=== PATIENT | male | born 1950 | race Asian ===

== ENCOUNTER 2021-11-21 10:24 | Inpatient (IN) | payer OTHER ==
[2021-11-21 12:12] LABS: VENOUS BASE EXCESS 0.7 mmol/L (-2-2); VENOUS O2 SATURATION 91.5 % (70-80); VENOUS PCO2 37.2 mmHg (38-52); VENOUS PH 7.441 (7.310-7.410)
[2021-11-21] MEDS ORDERED: LACTATED RINGERS SOLUTION 1000 ML INFUS.BAG IV ONE (12:12)
[2021-11-21 12:32] LABS: HEMATOCRIT 26.2 % (35.4-49); HEMOGLOBIN 8.6 GM/dL (11.7-16.9); MCH 29.7 pg (25.7-33.7); MCHC 32.9 g/dl (32.0-35.9); MEAN CELL VOLUME 90.2 fl (80-96); MEAN PLT VOLUME 8.2 fl (7.5-11.1); PLATELET COUNT 324 10^3/uL (134-434); RDW 15.7 % (11.9-15.9); WHITE BLOOD COUNT 24.9 K/mm3 (4.0-10.0)
[2021-11-21 12:35] LABS: INR 1.28 (0.83-1.09); PROTHROMBIN TIME (PATIENT) 14.7 SEC (9.7-13.0)
[2021-11-21 12:38] LABS: ACTIVATED PTT 30.4 SECONDS (25.2-36.5)
[2021-11-21 12:42] LABS: CHLORIDE 96 mmol/L (98-107); SODIUM 136 mmol/L (136-145)
[2021-11-21 12:44] LABS: BLOOD UREA NITROGEN 40.5 mg/dL (7-18)
[2021-11-21 12:45] LABS: ALBUMIN 1.9 g/dl (3.4-5.0); ANION GAP 13 MMOL/L (8-16); CO2 26 mmol/L (21-32); GLUCOSE,RANDOM 103 mg/dL (74-106)
[2021-11-21 12:48] LABS: CREATININE 1.3 mg/dL (0.55-1.3); SGOT/AST 90 U/L (15-37); SGPT/ALT 114 U/L (13-61)
[2021-11-21 12:49] LABS: BILIRUBIN,TOTAL 1.3 mg/dL (0.2-1); TOT PROT 6.2 g/dl (6.4-8.2)
[2021-11-21 12:50] LABS: ALK PHOS 302 U/L (45-117)
[2021-11-21] MEDS ORDERED: PIPERACILLIN/TAZOB 3.375 GM 3.375 GM in DEXTROSE 5%-WATER - 50 ML IVPB ONE (13:02)
[2021-11-21] MEDS ORDERED: VANCOMYCIN 1 GM in D5W (PRE-DOCKED) 1,000 MG/250 ML IVPB ONE (13:02)
[2021-11-21] MEDS ORDERED: PIPERACILLIN/TAZOB 3.375 GM 3.375 GM/50 ML BAG IVPB ONE (13:14)
[2021-11-21] MEDS ORDERED: VANCOMYCIN 1 GRAM (PRE-DOCKED) 1,000 MG/250 ML BAG IVPB ONE (13:14)
[2021-11-21 13:34] LABS: EPI CELLS 27 /uL (0-25.1); HYALINE CASTS 19 /uL (0-3.1); URINE APPEARANCE CLOUDY; URINE BACTERIA 2 /uL (0-1359); URINE BILIRUBIN 1+ (NEGATIVE); URINE COLOR DK YELLOW; URINE GLUCOSE (UA) NEGATIVE (NEGATIVE); URINE KETONE TRACE (NEGATIVE); URINE LEUK ESTERASE NEGATIVE (NEGATIVE); URINE NITRITE NEGATIVE (NEGATIVE); URINE PROTEIN 1+ (NEGATIVE); URINE RBC 19 /uL (0-23.9); URINE WBC 17 /uL (0-25.8)
[2021-11-21 13:43] LABS: ANISOCYTOSIS 0; HELMET CELLS 0; HOWELL-JOLLY BODIES 0; MACROCYTOSIS 0; OVALOCYTE 0; ROULEAU 0; SICKELED CELLS 0; TARGET CELLS 0; TEAR DROP CELLS 0; TOXIC GRANULATION 0
[2021-11-21] MEDS ORDERED: DEXAMETHASONE SOD PHOSPHATE 4 MG/1 ML VIAL IVPUSH ONE (21:08)
[2021-11-21] MEDS ORDERED: DEXTROSE 5%-WATER - 50 ML IVPB ONE (22:07)
[2021-11-21] MEDS ORDERED: PIPERACILLIN/TAZOBACTAM 3.375 GM VIAL IVPB ONE (22:07)
[2021-11-21] MEDS: PIPERACILLIN/TAZOB 3.375 GM 3.375 GM in DEXTROSE 5%-WATER - 50 ML IVPB SCH (22:29)
[2021-11-21] MEDS: VANCOMYCIN 1 GM/200 ML PREMIX BAG IVPB SCH (23:07)
[2021-11-22] MEDS ORDERED: PIPERACILLIN/TAZOBACTAM 3.375 GM VIAL IVPB ONE ×3 (01:24→18:10)
[2021-11-22] MEDS ORDERED: DEXTROSE 5%-WATER - 50 ML IVPB ONE ×3 (01:25→18:10)
[2021-11-22] MEDS: PIPERACILLIN/TAZOB 3.375 GM 3.375 GM in DEXTROSE 5%-WATER - 50 ML IVPB SCH ×3 (02:44→18:13)
[2021-11-22 07:27] LABS: HEMATOCRIT 26.7 % (35.4-49); HEMOGLOBIN 8.6 GM/dL (11.7-16.9); MCH 29.4 pg (25.7-33.7); MCHC 32.4 g/dl (32.0-35.9); MEAN CELL VOLUME 90.6 fl (80-96); MEAN PLT VOLUME 7.5 fl (7.5-11.1); PLATELET COUNT 410 10^3/uL (134-434); RBC 2.94 M/mm3 (4.00-5.60); RDW 15.7 % (11.9-15.9); WHITE BLOOD COUNT 28.7 K/mm3 (4.0-10.0)
[2021-11-22 08:41] LABS: ANISOCYTOSIS 0; HELMET CELLS 0; HOWELL-JOLLY BODIES 0; MACROCYTOSIS 0; OVALOCYTE 0; ROULEAU 0; SICKELED CELLS 0; TARGET CELLS 0; TEAR DROP CELLS 0; TOXIC GRANULATION 0
[2021-11-22 08:57] LABS: ALBUMIN 1.9 g/dl (3.4-5.0); BLOOD UREA NITROGEN 29.3 mg/dL (7-18); MAGNESIUM 2.2 mg/dL (1.8-2.4)
[2021-11-22 09:00] LABS: PHOSPHOROUS 3.7 mg/dL (2.5-4.9)
[2021-11-22 09:01] LABS: BILIRUBIN,TOTAL 1.4 mg/dL (0.2-1)
[2021-11-22 09:02] LABS: TOT PROT 6.2 g/dl (6.4-8.2)
[2021-11-22] MEDS ORDERED: REMDESIVIR 200 MG in SODIUM CHLORIDE 250 ML IVPB ONE (09:30)
[2021-11-22] MEDS ORDERED: TICAGRELOR 60 MG TABLET PO SCH (10:00)
[2021-11-22] MEDS: VANCOMYCIN 1 GM/200 ML PREMIX BAG IVPB SCH ×2 (10:49→13:24)
[2021-11-22] MEDS: DEXAMETHASONE SOD PHOSPHATE 10 MG/1 ML VIAL IVPUSH SCH (10:53)
[2021-11-22] MEDS: amLODIPine BESYLATE 5 MG TABLET (FP) PO SCH (10:55)
[2021-11-22] MEDS: ENOXAPARIN NA (PORCINE) 40 MG/0.4 ML DISP.SYRIN SQ SCH (10:55)
[2021-11-22] MEDS: ALLOPURINOL 100 MG TABLET (FP) PO SCH (12:01)
[2021-11-22] MEDS ORDERED: VANCOMYCIN/WATER FOR INJ (PEG) 1,000 MG/200 ML BAG IVPB SCH (13:00)
[2021-11-22] MEDS ORDERED: ALBUTEROL SO4 2.5/IPRATROPIUM 0.5 INH SOL 3 ML VIAL.NEB. NEB PRN (14:36)
[2021-11-22] MEDS: AMINO ACIDS/PROTEIN HYDROLYS 30 ML LIQUID.PKT PO SCH (18:13)
[2021-11-22] MEDS: ATORVASTATIN CA 40 MG TABLET (FP) PO SCH (21:32)
[2021-11-22] MEDS: VANCOMYCIN/WATER FOR INJ (PEG) 1,000 MG/200 ML BAG IVPB SCH (21:32)
[2021-11-23] MEDS ORDERED: DEXTROSE 5%-WATER - 50 ML IVPB ONE ×3 (01:06→18:00)
[2021-11-23] MEDS ORDERED: PIPERACILLIN/TAZOBACTAM 3.375 GM VIAL IVPB ONE ×3 (01:06→18:00)
[2021-11-23] MEDS: PIPERACILLIN/TAZOB 3.375 GM 3.375 GM in DEXTROSE 5%-WATER - 50 ML IVPB SCH ×3 (01:49→18:02)
[2021-11-23 06:46] LABS: HEMATOCRIT 25.4 % (35.4-49); HEMOGLOBIN 8.3 GM/dL (11.7-16.9); MCH 29.7 pg (25.7-33.7); MCHC 32.7 g/dl (32.0-35.9); MEAN CELL VOLUME 90.8 fl (80-96); MEAN PLT VOLUME 7.5 fl (7.5-11.1); PLATELET COUNT 476 10^3/uL (134-434); RDW 15.8 % (11.9-15.9); WHITE BLOOD COUNT 29.8 K/mm3 (4.0-10.0)
[2021-11-23 07:08] LABS: CALCIUM 7.3 mg/dL (8.5-10.1)
[2021-11-23 07:09] LABS: ALBUMIN 1.8 g/dl (3.4-5.0); MAGNESIUM 1.9 mg/dL (1.8-2.4)
[2021-11-23 07:12] LABS: BILIRUBIN,TOTAL 0.7 mg/dL (0.2-1); CREATININE 1.1 mg/dL (0.55-1.3)
[2021-11-23 07:13] LABS: TOT PROT 5.8 g/dl (6.4-8.2)
[2021-11-23] MEDS ORDERED: POTASSIUM CHLORIDE TABS 20 MEQ TABLET.ER (FP) PO ONE (07:35)
[2021-11-23 08:32] LABS: ANISOCYTOSIS 2+; MACROCYTOSIS 0
[2021-11-23] MEDS: AMINO ACIDS/PROTEIN HYDROLYS 30 ML LIQUID.PKT PO SCH ×2 (10:49→18:02)
[2021-11-23] MEDS: amLODIPine BESYLATE 5 MG TABLET (FP) PO SCH (10:49)
[2021-11-23] MEDS: DEXAMETHASONE SOD PHOSPHATE 10 MG/1 ML VIAL IVPUSH SCH (10:49)
[2021-11-23] MEDS: ALLOPURINOL 100 MG TABLET (FP) PO SCH (10:50)
[2021-11-23] MEDS: VANCOMYCIN/WATER FOR INJ (PEG) 1,000 MG/200 ML BAG IVPB SCH ×2 (11:02→22:18)
[2021-11-23] MEDS: ENOXAPARIN NA (PORCINE) 40 MG/0.4 ML DISP.SYRIN SQ SCH (11:02)
[2021-11-23] MEDS: ATORVASTATIN CA 40 MG TABLET (FP) PO SCH (22:19)
[2021-11-24] MEDS ORDERED: DEXTROSE 5%-WATER - 50 ML IVPB ONE ×3 (00:51→19:24)
[2021-11-24] MEDS ORDERED: PIPERACILLIN/TAZOBACTAM 3.375 GM VIAL IVPB ONE ×3 (00:51→19:23)
[2021-11-24] MEDS: PIPERACILLIN/TAZOB 3.375 GM 3.375 GM in DEXTROSE 5%-WATER - 50 ML IVPB SCH ×3 (01:45→20:34)
[2021-11-24 08:04] LABS: HEMATOCRIT 25.9 % (35.4-49); HEMOGLOBIN 8.5 GM/dL (11.7-16.9); MEAN PLT VOLUME 7.4 fl (7.5-11.1); PLATELET COUNT 555 10^3/uL (134-434); RBC 2.85 M/mm3 (4.00-5.60)
[2021-11-24 08:27] LABS: CALCIUM 7.6 mg/dL (8.5-10.1)
[2021-11-24 08:28] LABS: ALBUMIN 1.9 g/dl (3.4-5.0); BLOOD UREA NITROGEN 31.5 mg/dL (7-18); MAGNESIUM 1.7 mg/dL (1.8-2.4)
[2021-11-24 08:31] LABS: CREATININE 0.8 mg/dL (0.55-1.3)
[2021-11-24 08:33] LABS: BILIRUBIN,TOTAL 0.5 mg/dL (0.2-1); TOT PROT 6.1 g/dl (6.4-8.2)
[2021-11-24 08:48] LABS: ANISOCYTOSIS 1+; MACROCYTOSIS 0
[2021-11-24] MEDS: AMINO ACIDS/PROTEIN HYDROLYS 30 ML LIQUID.PKT PO SCH ×2 (09:41→19:28)
[2021-11-24] MEDS: ENOXAPARIN NA (PORCINE) 40 MG/0.4 ML DISP.SYRIN SQ SCH (09:42)
[2021-11-24] MEDS: DEXAMETHASONE SOD PHOSPHATE 10 MG/1 ML VIAL IVPUSH SCH (09:42)
[2021-11-24] MEDS: amLODIPine BESYLATE 5 MG TABLET (FP) PO SCH (09:43)
[2021-11-24] MEDS: ALLOPURINOL 100 MG TABLET (FP) PO SCH (09:43)
[2021-11-24] MEDS: VANCOMYCIN/WATER FOR INJ (PEG) 1,000 MG/200 ML BAG IVPB SCH (09:48)
[2021-11-24] MEDS ORDERED: MAGNESIUM OXIDE 400 MG TABLET (FP) PO ONE (10:06)
[2021-11-24 14:11] LABS: SARS-CoV-2 NAA Detected (Not Detected)
[2021-11-24] MEDS: REMDESIVIR 100 MG in SODIUM CHLORIDE 250 ML IVPB SCH (14:21)
[2021-11-24 15:07] VITALS: BMI 21.9
[2021-11-24] MEDS: ATORVASTATIN CA 40 MG TABLET (FP) PO SCH (22:34)
[2021-11-25] MEDS ORDERED: PIPERACILLIN/TAZOBACTAM 3.375 GM VIAL IVPB ONE ×3 (01:02→17:45)
[2021-11-25] MEDS ORDERED: DEXTROSE 5%-WATER - 50 ML IVPB ONE ×3 (01:02→17:45)
[2021-11-25] MEDS: PIPERACILLIN/TAZOB 3.375 GM 3.375 GM in DEXTROSE 5%-WATER - 50 ML IVPB SCH ×3 (01:40→17:47)
[2021-11-25 07:39] LABS: HEMATOCRIT 27.7 % (35.4-49); HEMOGLOBIN 9.2 GM/dL (11.7-16.9); MCH 29.9 pg (25.7-33.7); MCHC 33.1 g/dl (32.0-35.9); MEAN CELL VOLUME 90.2 fl (80-96); MEAN PLT VOLUME 7.1 fl (7.5-11.1); PLATELET COUNT 589 10^3/uL (134-434); RBC 3.07 M/mm3 (4.00-5.60); RDW 15.8 % (11.9-15.9); WHITE BLOOD COUNT 23.5 K/mm3 (4.0-10.0)
[2021-11-25] MEDS: VANCOMYCIN 1 GM/200 ML PREMIX BAG IVPB SCH (07:39)
[2021-11-25 07:47] LABS: INR 1.19 (0.83-1.09); PROTHROMBIN TIME (PATIENT) 13.7 SEC (9.7-13.0)
[2021-11-25 08:12] LABS: ALBUMIN 1.9 g/dl (3.4-5.0); CALCIUM 7.8 mg/dL (8.5-10.1); MAGNESIUM 1.6 mg/dL (1.8-2.4)
[2021-11-25 08:13] LABS: BLOOD UREA NITROGEN 25.7 mg/dL (7-18); TOT PROT 6.2 g/dl (6.4-8.2)
[2021-11-25 08:14] LABS: BILIRUBIN,TOTAL 0.4 mg/dL (0.2-1)
[2021-11-25 08:15] LABS: CREATININE 0.8 mg/dL (0.55-1.3)
[2021-11-25 09:10] LABS: ANISOCYTOSIS 0; MACROCYTOSIS 0
[2021-11-25] MEDS ORDERED: MAGNESIUM OXIDE 400 MG TABLET (FP) PO ONE (09:31)
[2021-11-25] MEDS: ALLOPURINOL 100 MG TABLET (FP) PO SCH (10:10)
[2021-11-25] MEDS: amLODIPine BESYLATE 5 MG TABLET (FP) PO SCH (10:10)
[2021-11-25] MEDS: AMINO ACIDS/PROTEIN HYDROLYS 30 ML LIQUID.PKT PO SCH ×2 (10:12→16:58)
[2021-11-25] MEDS: DEXAMETHASONE SOD PHOSPHATE 10 MG/1 ML VIAL IVPUSH SCH (10:53)
[2021-11-25] MEDS: VANCOMYCIN 1,000 MG in DEXTROSE 5%-WATER - 250 ML IVPB SCH (11:21)
[2021-11-25] MEDS: REMDESIVIR 100 MG in SODIUM CHLORIDE 250 ML IVPB SCH (11:25)
[2021-11-25] MEDS: THIAMINE HCL 200 MG/2 ML VIAL IVPB SCH (16:58)
[2021-11-25] MEDS: ATORVASTATIN CA 40 MG TABLET (FP) PO SCH (21:53)
[2021-11-26] MEDS ORDERED: PIPERACILLIN/TAZOBACTAM 3.375 GM VIAL IVPB ONE ×3 (00:43→17:59)
[2021-11-26] MEDS ORDERED: DEXTROSE 5%-WATER - 50 ML IVPB ONE ×3 (00:43→17:59)
[2021-11-26] MEDS: PIPERACILLIN/TAZOB 3.375 GM 3.375 GM in DEXTROSE 5%-WATER - 50 ML IVPB SCH ×3 (01:45→18:26)
[2021-11-26 07:41] LABS: HEMATOCRIT 28.2 % (35.4-49); HEMOGLOBIN 9.2 GM/dL (11.7-16.9); MCH 30.2 pg (25.7-33.7); MCHC 32.8 g/dl (32.0-35.9); MEAN PLT VOLUME 7.3 fl (7.5-11.1); PLATELET COUNT 627 10^3/uL (134-434); RBC 3.06 M/mm3 (4.00-5.60); WHITE BLOOD COUNT 23.1 K/mm3 (4.0-10.0)
[2021-11-26 07:52] LABS: INR 1.22 (0.83-1.09); PROTHROMBIN TIME (PATIENT) 14.1 SEC (9.7-13.0)
[2021-11-26 08:11] LABS: BLOOD UREA NITROGEN 25.8 mg/dL (7-18); CALCIUM 8.6 mg/dL (8.5-10.1)
[2021-11-26 08:12] LABS: MAGNESIUM 1.5 mg/dL (1.8-2.4)
[2021-11-26 08:14] LABS: CREATININE 0.7 mg/dL (0.55-1.3)
[2021-11-26 08:15] LABS: BILIRUBIN,TOTAL 0.4 mg/dL (0.2-1); TOT PROT 6.4 g/dl (6.4-8.2)
[2021-11-26] MEDS: AMINO ACIDS/PROTEIN HYDROLYS 30 ML LIQUID.PKT PO SCH ×2 (08:27→18:26)
[2021-11-26] MEDS: VANCOMYCIN 1,000 MG in DEXTROSE 5%-WATER - 250 ML IVPB SCH (08:46)
[2021-11-26 09:29] LABS: ANISOCYTOSIS 0; MACROCYTOSIS 0
[2021-11-26] MEDS: VANCOMYCIN/WATER FOR INJ (PEG) 1,000 MG/200 ML BAG IVPB SCH (09:30)
[2021-11-26] MEDS: DEXAMETHASONE SOD PHOSPHATE 10 MG/1 ML VIAL IVPUSH SCH (10:04)
[2021-11-26] MEDS: ENOXAPARIN NA (PORCINE) 40 MG/0.4 ML DISP.SYRIN SQ SCH (10:05)
[2021-11-26] MEDS: THIAMINE HCL 200 MG/2 ML VIAL IVPB SCH (10:05)
[2021-11-26] MEDS: ALLOPURINOL 100 MG TABLET (FP) PO SCH (10:05)
[2021-11-26] MEDS: amLODIPine BESYLATE 5 MG TABLET (FP) PO SCH (10:05)
[2021-11-26] MEDS: MAGNESIUM OXIDE 400 MG TABLET (FP) PO SCH (22:27)
[2021-11-26] MEDS: ATORVASTATIN CA 40 MG TABLET (FP) PO SCH (22:27)
[2021-11-27] MEDS ORDERED: PIPERACILLIN/TAZOBACTAM 3.375 GM VIAL IVPB ONE ×3 (00:50→16:42)
[2021-11-27] MEDS ORDERED: DEXTROSE 5%-WATER - 50 ML IVPB ONE ×3 (00:50→16:42)
[2021-11-27] MEDS: PIPERACILLIN/TAZOB 3.375 GM 3.375 GM in DEXTROSE 5%-WATER - 50 ML IVPB SCH ×3 (02:17→17:40)
[2021-11-27 07:25] LABS: HEMATOCRIT 27.9 % (35.4-49); HEMOGLOBIN 9.4 GM/dL (11.7-16.9); MCH 30.7 pg (25.7-33.7); MCHC 33.5 g/dl (32.0-35.9); MEAN CELL VOLUME 91.4 fl (80-96); MEAN PLT VOLUME 7.2 fl (7.5-11.1); PLATELET COUNT 651 10^3/uL (134-434); RBC 3.06 M/mm3 (4.00-5.60); RDW 16.5 % (11.9-15.9); WHITE BLOOD COUNT 24.4 K/mm3 (4.0-10.0)
[2021-11-27 07:30] LABS: INR 1.27 (0.83-1.09); PROTHROMBIN TIME (PATIENT) 14.6 SEC (9.7-13.0)
[2021-11-27 08:00] LABS: CALCIUM 8.5 mg/dL (8.5-10.1)
[2021-11-27 08:01] LABS: ALBUMIN 2.1 g/dl (3.4-5.0); BLOOD UREA NITROGEN 27.4 mg/dL (7-18); MAGNESIUM 1.6 mg/dL (1.8-2.4)
[2021-11-27 08:04] LABS: CREATININE 0.7 mg/dL (0.55-1.3)
[2021-11-27 08:06] LABS: BILIRUBIN,TOTAL 0.4 mg/dL (0.2-1)
[2021-11-27 08:07] LABS: TOT PROT 6.4 g/dl (6.4-8.2)
[2021-11-27 09:56] LABS: ANISOCYTOSIS 2+; MACROCYTOSIS 0
[2021-11-27] MEDS: amLODIPine BESYLATE 5 MG TABLET (FP) PO SCH (10:53)
[2021-11-27] MEDS: DEXAMETHASONE SOD PHOSPHATE 10 MG/1 ML VIAL IVPUSH SCH (10:53)
[2021-11-27] MEDS: ALLOPURINOL 100 MG TABLET (FP) PO SCH (10:53)
[2021-11-27] MEDS: MAGNESIUM OXIDE 400 MG TABLET (FP) PO SCH ×2 (10:53→21:10)
[2021-11-27] MEDS: AMINO ACIDS/PROTEIN HYDROLYS 30 ML LIQUID.PKT PO SCH ×2 (10:54→17:40)
[2021-11-27] MEDS: ENOXAPARIN NA (PORCINE) 40 MG/0.4 ML DISP.SYRIN SQ SCH (10:54)
[2021-11-27] MEDS: THIAMINE HCL 200 MG/2 ML VIAL IVPB SCH (10:54)
[2021-11-27] MEDS: VANCOMYCIN/WATER FOR INJ (PEG) 1,000 MG/200 ML BAG IVPB SCH (11:18)
[2021-11-27] MEDS: AMINO ACIDS 4.25%/D5W 1,000 ML IV SCH (17:39)
[2021-11-27] MEDS: ATORVASTATIN CA 40 MG TABLET (FP) PO SCH (21:10)
[2021-11-28] MEDS ORDERED: PIPERACILLIN/TAZOBACTAM 3.375 GM VIAL IVPB ONE ×3 (01:15→16:33)
[2021-11-28] MEDS ORDERED: DEXTROSE 5%-WATER - 50 ML IVPB ONE ×3 (01:15→16:34)
[2021-11-28] MEDS: PIPERACILLIN/TAZOB 3.375 GM 3.375 GM in DEXTROSE 5%-WATER - 50 ML IVPB SCH ×3 (01:36→17:38)
[2021-11-28 07:04] LABS: INR 1.18 (0.83-1.09); PROTHROMBIN TIME (PATIENT) 13.6 SEC (9.7-13.0)
[2021-11-28] MEDS: AMINO ACIDS/PROTEIN HYDROLYS 30 ML LIQUID.PKT PO SCH ×2 (07:48→17:40)
[2021-11-28] MEDS: VANCOMYCIN/WATER FOR INJ (PEG) 1,000 MG/200 ML BAG IVPB SCH (08:03)
[2021-11-28] MEDS: amLODIPine BESYLATE 5 MG TABLET (FP) PO SCH (10:30)
[2021-11-28] MEDS: DEXAMETHASONE SOD PHOSPHATE 10 MG/1 ML VIAL IVPUSH SCH (10:30)
[2021-11-28] MEDS: MAGNESIUM OXIDE 400 MG TABLET (FP) PO SCH ×2 (10:30→21:34)
[2021-11-28] MEDS: ALLOPURINOL 100 MG TABLET (FP) PO SCH (10:30)
[2021-11-28 11:12] LABS: HEMATOCRIT 27.2 % (35.4-49); HEMOGLOBIN 8.8 GM/dL (11.7-16.9); MCH 29.8 pg (25.7-33.7); MCHC 32.2 g/dl (32.0-35.9); MEAN CELL VOLUME 92.6 fl (80-96); MEAN PLT VOLUME 6.9 fl (7.5-11.1); PLATELET COUNT 633 10^3/uL (134-434); RBC 2.94 M/mm3 (4.00-5.60); RDW 16.8 % (11.9-15.9); WHITE BLOOD COUNT 26.7 K/mm3 (4.0-10.0)
[2021-11-28 11:34] LABS: ALBUMIN 2.1 g/dl (3.4-5.0); BLOOD UREA NITROGEN 29.6 mg/dL (7-18); CALCIUM 8.1 mg/dL (8.5-10.1); MAGNESIUM 1.5 mg/dL (1.8-2.4)
[2021-11-28 11:36] LABS: ANISOCYTOSIS 1+; MACROCYTOSIS 1+
[2021-11-28 11:37] LABS: CREATININE 0.6 mg/dL (0.55-1.3)
[2021-11-28 11:38] LABS: BILIRUBIN,TOTAL 0.5 mg/dL (0.2-1)
[2021-11-28 11:39] LABS: TOT PROT 6.4 g/dl (6.4-8.2)
[2021-11-28] MEDS: AMINO ACIDS 4.25%/D5W 1,000 ML IV SCH (17:38)
[2021-11-28] MEDS: ATORVASTATIN CA 40 MG TABLET (FP) PO SCH (21:34)
[2021-11-29] MEDS ORDERED: PIPERACILLIN/TAZOBACTAM 3.375 GM VIAL IVPB ONE ×3 (01:53→17:37)
[2021-11-29] MEDS ORDERED: DEXTROSE 5%-WATER - 50 ML IVPB ONE ×3 (01:53→17:38)
[2021-11-29] MEDS: PIPERACILLIN/TAZOB 3.375 GM 3.375 GM in DEXTROSE 5%-WATER - 50 ML IVPB SCH ×3 (02:22→18:28)
[2021-11-29] MEDS: DEXAMETHASONE SOD PHOSPHATE 10 MG/1 ML VIAL IVPUSH SCH (10:11)
[2021-11-29] MEDS: AMINO ACIDS/PROTEIN HYDROLYS 30 ML LIQUID.PKT PO SCH ×2 (10:11→17:49)
[2021-11-29] MEDS: ALLOPURINOL 100 MG TABLET (FP) PO SCH (10:13)
[2021-11-29] MEDS: amLODIPine BESYLATE 5 MG TABLET (FP) PO SCH (10:13)
[2021-11-29] MEDS: MAGNESIUM OXIDE 400 MG TABLET (FP) PO SCH ×2 (10:13→22:23)
[2021-11-29 11:53] LABS: HEMATOCRIT 27.7 % (35.4-49); HEMOGLOBIN 8.9 GM/dL (11.7-16.9); MCH 29.7 pg (25.7-33.7); MCHC 32.1 g/dl (32.0-35.9); MEAN CELL VOLUME 92.5 fl (80-96); MEAN PLT VOLUME 7.1 fl (7.5-11.1); PLATELET COUNT 602 10^3/uL (134-434); RDW 17.4 % (11.9-15.9); WHITE BLOOD COUNT 26.2 K/mm3 (4.0-10.0)
[2021-11-29 12:00] LABS: INR 1.12 (0.83-1.09); PROTHROMBIN TIME (PATIENT) 12.9 SEC (9.7-13.0)
[2021-11-29 12:25] LABS: CALCIUM 8.7 mg/dL (8.5-10.1)
[2021-11-29 12:26] LABS: ALBUMIN 2.2 g/dl (3.4-5.0); BLOOD UREA NITROGEN 30.4 mg/dL (7-18); MAGNESIUM 1.5 mg/dL (1.8-2.4)
[2021-11-29 12:29] LABS: CREATININE 0.6 mg/dL (0.55-1.3)
[2021-11-29 12:30] LABS: BILIRUBIN,TOTAL 0.4 mg/dL (0.2-1); TOT PROT 6.2 g/dl (6.4-8.2)
[2021-11-29 12:41] LABS: ANISOCYTOSIS 2+; MACROCYTOSIS 0
[2021-11-29] MEDS ORDERED: MAGNESIUM SULF 50% (8.12 MEQ/2 ML-1 GM VIAL) IVPB ONE (12:41)
[2021-11-29] MEDS: VANCOMYCIN/WATER FOR INJ (PEG) 1,000 MG/200 ML BAG IVPB SCH (12:45)
[2021-11-29] MEDS ORDERED: MAGNESIUM 1GM/D5W 100ML - 100 ML IVPB IVPB ONE (14:45)
[2021-11-29] MEDS: AMINO ACIDS 4.25%/D5W 1,000 ML IV SCH (17:59)
[2021-11-29] MEDS: ATORVASTATIN CA 40 MG TABLET (FP) PO SCH (22:23)
[2021-11-30] MEDS ORDERED: DEXTROSE 5%-WATER - 50 ML IVPB ONE ×3 (01:59→17:50)
[2021-11-30] MEDS ORDERED: PIPERACILLIN/TAZOBACTAM 3.375 GM VIAL IVPB ONE ×3 (01:59→17:50)
[2021-11-30] MEDS: PIPERACILLIN/TAZOB 3.375 GM 3.375 GM in DEXTROSE 5%-WATER - 50 ML IVPB SCH ×3 (02:48→18:14)
[2021-11-30] MEDS: ENOXAPARIN NA (PORCINE) 40 MG/0.4 ML DISP.SYRIN SQ SCH (09:48)
[2021-11-30] MEDS: AMINO ACIDS/PROTEIN HYDROLYS 30 ML LIQUID.PKT PO SCH ×2 (09:48→18:14)
[2021-11-30] MEDS: VANCOMYCIN/WATER FOR INJ (PEG) 1,000 MG/200 ML BAG IVPB SCH (09:48)
[2021-11-30] MEDS: DEXAMETHASONE SOD PHOSPHATE 10 MG/1 ML VIAL IVPUSH SCH (09:48)
[2021-11-30] MEDS: MAGNESIUM OXIDE 400 MG TABLET (FP) PO SCH ×2 (09:48→21:42)
[2021-11-30] MEDS: amLODIPine BESYLATE 5 MG TABLET (FP) PO SCH (09:49)
[2021-11-30] MEDS: ALLOPURINOL 100 MG TABLET (FP) PO SCH (09:50)
[2021-11-30 10:03] LABS: HEMATOCRIT 28.3 % (35.4-49); HEMOGLOBIN 9.5 GM/dL (11.7-16.9); MCH 30.8 pg (25.7-33.7); MCHC 33.4 g/dl (32.0-35.9); MEAN CELL VOLUME 92.1 fl (80-96); MEAN PLT VOLUME 7.2 fl (7.5-11.1); PLATELET COUNT 591 10^3/uL (134-434); RBC 3.07 M/mm3 (4.00-5.60); RDW 17.1 % (11.9-15.9); WHITE BLOOD COUNT 23.9 K/mm3 (4.0-10.0)
[2021-11-30 10:25] LABS: CHLORIDE 104 mmol/L (98-107); SODIUM 137 mmol/L (136-145)
[2021-11-30 10:32] LABS: CALCIUM 8.1 mg/dL (8.5-10.1)
[2021-11-30 10:33] LABS: ALBUMIN 2.3 g/dl (3.4-5.0); ANION GAP 9 MMOL/L (8-16); BLOOD UREA NITROGEN 29.1 mg/dL (7-18); CO2 24 mmol/L (21-32); GLUCOSE,RANDOM 76 mg/dL (74-106); MAGNESIUM 1.9 mg/dL (1.8-2.4)
[2021-11-30 10:35] LABS: SGPT/ALT 53 U/L (13-61)
[2021-11-30 10:36] LABS: CREATININE 0.6 mg/dL (0.55-1.3); SGOT/AST 25 U/L (15-37)
[2021-11-30 10:37] LABS: BILIRUBIN,TOTAL 0.3 mg/dL (0.2-1); TOT PROT 6.5 g/dl (6.4-8.2)
[2021-11-30 10:38] LABS: ALK PHOS 112 U/L (45-117)
[2021-11-30 10:42] LABS: LDH 317 U/L (87-246)
[2021-11-30 11:13] LABS: ANISOCYTOSIS 0; HELMET CELLS 0; HOWELL-JOLLY BODIES 0; MACROCYTOSIS 0; OVALOCYTE 0; ROULEAU 0; SICKELED CELLS 0; TARGET CELLS 0; TEAR DROP CELLS 0; TOXIC GRANULATION 0
[2021-11-30 11:25] LABS: INR 1.1 (0.83-1.09); PROTHROMBIN TIME (PATIENT) 12.7 SEC (9.7-13.0)
[2021-11-30] MEDS: AMINO ACIDS 4.25%/D5W 1,000 ML IV SCH (18:14)
[2021-11-30] MEDS: ATORVASTATIN CA 40 MG TABLET (FP) PO SCH (21:42)
[2021-12-01] MEDS ORDERED: PIPERACILLIN/TAZOBACTAM 3.375 GM VIAL IVPB ONE ×3 (01:35→16:38)
[2021-12-01] MEDS ORDERED: DEXTROSE 5%-WATER - 50 ML IVPB ONE ×3 (01:35→16:39)
[2021-12-01] MEDS: PIPERACILLIN/TAZOB 3.375 GM 3.375 GM in DEXTROSE 5%-WATER - 50 ML IVPB SCH ×3 (01:44→17:09)
[2021-12-01] MEDS: AMINO ACIDS/PROTEIN HYDROLYS 30 ML LIQUID.PKT PO SCH ×2 (08:30→17:09)
[2021-12-01] MEDS: VANCOMYCIN/WATER FOR INJ (PEG) 1,000 MG/200 ML BAG IVPB SCH (08:30)
[2021-12-01] MEDS: ALLOPURINOL 100 MG TABLET (FP) PO SCH (09:34)
[2021-12-01] MEDS: amLODIPine BESYLATE 5 MG TABLET (FP) PO SCH (09:34)
[2021-12-01] MEDS: ENOXAPARIN NA (PORCINE) 40 MG/0.4 ML DISP.SYRIN SQ SCH (09:34)
[2021-12-01] MEDS: DEXAMETHASONE SOD PHOSPHATE 10 MG/1 ML VIAL IVPUSH SCH (09:34)
[2021-12-01] MEDS: MAGNESIUM OXIDE 400 MG TABLET (FP) PO SCH ×2 (09:34→21:32)
[2021-12-01 12:17] LABS: HEMATOCRIT 31.2 % (35.4-49); HEMOGLOBIN 10.3 GM/dL (11.7-16.9); MCH 30.4 pg (25.7-33.7); MEAN CELL VOLUME 92.3 fl (80-96); MEAN PLT VOLUME 7.1 fl (7.5-11.1); PLATELET COUNT 484 10^3/uL (134-434); RBC 3.38 M/mm3 (4.00-5.60); RDW 17.6 % (11.9-15.9); WHITE BLOOD COUNT 29.4 K/mm3 (4.0-10.0)
[2021-12-01 12:25] LABS: INR 1.18 (0.83-1.09); PROTHROMBIN TIME (PATIENT) 13.6 SEC (9.7-13.0)
[2021-12-01 12:35] LABS: ALBUMIN 2.4 g/dl (3.4-5.0); BLOOD UREA NITROGEN 26.4 mg/dL (7-18); MAGNESIUM 1.8 mg/dL (1.8-2.4)
[2021-12-01 12:38] LABS: CREATININE 0.6 mg/dL (0.55-1.3)
[2021-12-01 12:40] LABS: BILIRUBIN,TOTAL 0.5 mg/dL (0.2-1); TOT PROT 6.5 g/dl (6.4-8.2)
[2021-12-01 13:26] LABS: ANISOCYTOSIS 0; HELMET CELLS 0; HOWELL-JOLLY BODIES 0; MACROCYTOSIS 0; OVALOCYTE 0; ROULEAU 0; SICKELED CELLS 0; TARGET CELLS 0; TEAR DROP CELLS 0; TOXIC GRANULATION 0
[2021-12-01] MEDS ORDERED: HYDROCORTISONE 0.5% TOPICAL OINTMENT TUBE TP PRN (14:42)
[2021-12-01] MEDS ORDERED: HYDROCORTISONE 0.5% TOPICAL CREAM 30 GM TUBE TP PRN (16:21)
[2021-12-01] MEDS: AMINO ACIDS 4.25%/D5W 1,000 ML IV SCH (16:23)
[2021-12-01] MEDS: ATORVASTATIN CA 40 MG TABLET (FP) PO SCH (21:32)
[2021-12-02] MEDS ORDERED: PIPERACILLIN/TAZOBACTAM 3.375 GM VIAL IVPB ONE ×3 (01:23→17:20)
[2021-12-02] MEDS ORDERED: DEXTROSE 5%-WATER - 50 ML IVPB ONE ×3 (01:24→17:21)
[2021-12-02] MEDS: PIPERACILLIN/TAZOB 3.375 GM 3.375 GM in DEXTROSE 5%-WATER - 50 ML IVPB SCH ×3 (01:34→17:23)
[2021-12-02] MEDS: AMINO ACIDS/PROTEIN HYDROLYS 30 ML LIQUID.PKT PO SCH ×2 (07:39→17:23)
[2021-12-02] MEDS: VANCOMYCIN/WATER FOR INJ (PEG) 1,000 MG/200 ML BAG IVPB SCH (08:14)
[2021-12-02] MEDS: DEXAMETHASONE SOD PHOSPHATE 10 MG/1 ML VIAL IVPUSH SCH (10:47)
[2021-12-02] MEDS: amLODIPine BESYLATE 5 MG TABLET (FP) PO SCH ×2 (10:47→11:09)
[2021-12-02] MEDS: ALLOPURINOL 100 MG TABLET (FP) PO SCH (10:47)
[2021-12-02] MEDS: MAGNESIUM OXIDE 400 MG TABLET (FP) PO SCH ×2 (10:47→21:44)
[2021-12-02 11:57] LABS: INR 1.18 (0.83-1.09); PROTHROMBIN TIME (PATIENT) 13.6 SEC (9.7-13.0)
[2021-12-02 12:16] LABS: HEMATOCRIT 29.1 % (35.4-49); HEMOGLOBIN 9.4 GM/dL (11.7-16.9); MCH 29.9 pg (25.7-33.7); MCHC 32.4 g/dl (32.0-35.9); MEAN CELL VOLUME 92.1 fl (80-96); MEAN PLT VOLUME 7.3 fl (7.5-11.1); PLATELET COUNT 423 10^3/uL (134-434); RBC 3.16 M/mm3 (4.00-5.60); RDW 18.5 % (11.9-15.9); WHITE BLOOD COUNT 21.3 K/mm3 (4.0-10.0)
[2021-12-02 12:18] LABS: CALCIUM 7.5 mg/dL (8.5-10.1)
[2021-12-02 12:19] LABS: ALBUMIN 2.2 g/dl (3.4-5.0); BLOOD UREA NITROGEN 32.5 mg/dL (7-18)
[2021-12-02 12:21] LABS: CREATININE 0.7 mg/dL (0.55-1.3)
[2021-12-02 12:23] LABS: BILIRUBIN,TOTAL 0.7 mg/dL (0.2-1); TOT PROT 6.1 g/dl (6.4-8.2)
[2021-12-02] MEDS ORDERED: POTASSIUM CHLORIDE TABS 20 MEQ TABLET.ER (FP) PO ONE (12:23)
[2021-12-02 13:30] LABS: ANISOCYTOSIS 1+; MACROCYTOSIS 0; PLATELET ESTIMATE NORMAL
[2021-12-02] MEDS ORDERED: predniSONE 20 MG TABLET (UD) PO SCH (15:15)
[2021-12-02] MEDS: PANTOPRAZOLE 40 MG TABLET PO SCH (15:25)
[2021-12-02] MEDS: POTASSIUM CHLORIDE 10 MEQ in AMINO ACIDS 4.25%/D5W 1,000 ML IV SCH (20:02)
[2021-12-02] MEDS: ATORVASTATIN CA 40 MG TABLET (FP) PO SCH (21:44)
[2021-12-03] MEDS ORDERED: PIPERACILLIN/TAZOBACTAM 3.375 GM VIAL IVPB ONE ×3 (01:04→16:57)
[2021-12-03] MEDS ORDERED: DEXTROSE 5%-WATER - 50 ML IVPB ONE ×3 (01:04→16:57)
[2021-12-03] MEDS: PIPERACILLIN/TAZOB 3.375 GM 3.375 GM in DEXTROSE 5%-WATER - 50 ML IVPB SCH ×3 (01:38→17:02)
[2021-12-03] MEDS: POTASSIUM CHLORIDE 10 MEQ in AMINO ACIDS 4.25%/D5W 1,000 ML IV SCH ×2 (05:28→17:46)
[2021-12-03] MEDS: AMINO ACIDS/PROTEIN HYDROLYS 30 ML LIQUID.PKT PO SCH ×2 (08:40→17:01)
[2021-12-03] MEDS: VANCOMYCIN/WATER FOR INJ (PEG) 1,000 MG/200 ML BAG IVPB SCH (08:40)
[2021-12-03 09:50] LABS: HEMATOCRIT 26.8 % (35.4-49); HEMOGLOBIN 8.8 GM/dL (11.7-16.9); MCH 30.4 pg (25.7-33.7); MCHC 32.9 g/dl (32.0-35.9); MEAN CELL VOLUME 92.4 fl (80-96); MEAN PLT VOLUME 7.5 fl (7.5-11.1); PLATELET COUNT 364 10^3/uL (134-434); RBC 2.89 M/mm3 (4.00-5.60); RDW 18.5 % (11.9-15.9); WHITE BLOOD COUNT 20.1 K/mm3 (4.0-10.0)
[2021-12-03 09:51] LABS: INR 1.15 (0.83-1.09); PROTHROMBIN TIME (PATIENT) 13.3 SEC (9.7-13.0)
[2021-12-03] MEDS: predniSONE 20 MG TABLET (UD) PO SCH (09:54)
[2021-12-03] MEDS: ALLOPURINOL 100 MG TABLET (FP) PO SCH (09:55)
[2021-12-03] MEDS: amLODIPine BESYLATE 5 MG TABLET (FP) PO SCH (09:55)
[2021-12-03] MEDS: PANTOPRAZOLE 40 MG TABLET PO SCH (09:55)
[2021-12-03] MEDS: MAGNESIUM OXIDE 400 MG TABLET (FP) PO SCH ×2 (09:55→21:15)
[2021-12-03 10:37] LABS: ANISOCYTOSIS 2+; MACROCYTOSIS 0
[2021-12-03 13:01] LABS: BF WBC & OTHER NUCLEATED CELLS 4439 /mm3
[2021-12-03 13:57] LABS: BODY FLUID MACROPHAGES 5 %; BODY FLUID MESOTHELIAL 2 %; BODY FLUID MONOCYTE 10 %
[2021-12-03] MEDS ORDERED: ACETAMINOPHEN 1000 MG/100 ML BAG IVPB PRN (17:22)
[2021-12-03] MEDS ORDERED: morphine CARPU-JECT 4 MG/1 ML DISP.SYRIN IVPUSH ONE (17:23)
[2021-12-03] MEDS: ATORVASTATIN CA 40 MG TABLET (FP) PO SCH (21:16)
[2021-12-04] MEDS ORDERED: PIPERACILLIN/TAZOBACTAM 3.375 GM VIAL IVPB ONE ×3 (00:15→17:16)
[2021-12-04] MEDS ORDERED: DEXTROSE 5%-WATER - 50 ML IVPB ONE ×3 (00:15→17:16)
[2021-12-04] MEDS: PIPERACILLIN/TAZOB 3.375 GM 3.375 GM in DEXTROSE 5%-WATER - 50 ML IVPB SCH ×3 (01:37→18:05)
[2021-12-04] MEDS: POTASSIUM CHLORIDE 10 MEQ in AMINO ACIDS 4.25%/D5W 1,000 ML IV SCH (05:38)
[2021-12-04 08:42] LABS: BASO % 0.8 % (0-2.0); EOS % 0.5 % (0-4.5); HEMATOCRIT 27.2 % (35.4-49); HEMOGLOBIN 8.9 GM/dL (11.7-16.9); LYMPH % 4.3 % (8-40); MCH 30.5 pg (25.7-33.7); MCHC 32.8 g/dl (32.0-35.9); MEAN CELL VOLUME 92.8 fl (80-96); MEAN PLT VOLUME 7.6 fl (7.5-11.1); MONO % 8.6 % (3.8-10.2); NEUT % 85.8 % (42.8-82.8); PLATELET COUNT 303 10^3/uL (134-434); RBC 2.93 M/mm3 (4.00-5.60); RDW 18.9 % (11.9-15.9); WHITE BLOOD COUNT 21.6 K/mm3 (4.0-10.0)
[2021-12-04] MEDS: predniSONE 20 MG TABLET (UD) PO SCH (08:59)
[2021-12-04] MEDS: AMINO ACIDS/PROTEIN HYDROLYS 30 ML LIQUID.PKT PO SCH ×2 (08:59→18:05)
[2021-12-04] MEDS: PANTOPRAZOLE 40 MG TABLET PO SCH (08:59)
[2021-12-04] MEDS: VANCOMYCIN/WATER FOR INJ (PEG) 1,000 MG/200 ML BAG IVPB SCH (08:59)
[2021-12-04] MEDS: ALLOPURINOL 100 MG TABLET (FP) PO SCH (08:59)
[2021-12-04] MEDS: MAGNESIUM OXIDE 400 MG TABLET (FP) PO SCH ×2 (09:00→23:19)
[2021-12-04 09:07] LABS: MAGNESIUM 1.8 mg/dL (1.8-2.4)
[2021-12-04 10:47] LABS: ANISOCYTOSIS 0; MACROCYTOSIS 0; PLATELET ESTIMATE NORMAL
[2021-12-04] MEDS: [UNRECOGNIZED DRUG - OTHER] IV SCH ×2 (11:50→23:18)
[2021-12-04] MEDS: AMINO ACIDS IV SCH ×2 (11:50→23:18)
[2021-12-04] MEDS: POTASSIUM CHLORIDE IV SCH ×2 (11:50→23:18)
[2021-12-04] MEDS: MAGNESIUM SULFATE IV SCH ×2 (11:50→23:18)
[2021-12-04] MEDS: ATORVASTATIN CA 40 MG TABLET (FP) PO SCH (23:19)
[2021-12-05] MEDS ORDERED: DEXTROSE 5%-WATER - 50 ML IVPB ONE ×3 (00:53→16:45)
[2021-12-05] MEDS ORDERED: PIPERACILLIN/TAZOBACTAM 3.375 GM VIAL IVPB ONE ×3 (00:53→16:45)
[2021-12-05] MEDS: PIPERACILLIN/TAZOB 3.375 GM 3.375 GM in DEXTROSE 5%-WATER - 50 ML IVPB SCH ×3 (01:11→17:22)
[2021-12-05] MEDS: VANCOMYCIN/WATER FOR INJ (PEG) 1,000 MG/200 ML BAG IVPB SCH (09:04)
[2021-12-05] MEDS: AMINO ACIDS/PROTEIN HYDROLYS 30 ML LIQUID.PKT PO SCH ×2 (09:04→17:22)
[2021-12-05 09:24] LABS: BASO % 0.4 % (0-2.0); EOS % 0.4 % (0-4.5); HEMATOCRIT 28.4 % (35.4-49); HEMOGLOBIN 9.3 GM/dL (11.7-16.9); LYMPH % 5.4 % (8-40); MCH 30.1 pg (25.7-33.7); MCHC 32.8 g/dl (32.0-35.9); MEAN CELL VOLUME 91.8 fl (80-96); MEAN PLT VOLUME 7.8 fl (7.5-11.1); MONO % 9.1 % (3.8-10.2); NEUT % 84.7 % (42.8-82.8); PLATELET COUNT 248 10^3/uL (134-434); RBC 3.09 M/mm3 (4.00-5.60); RDW 19.1 % (11.9-15.9)
[2021-12-05 09:41] LABS: CALCIUM 7.1 mg/dL (8.5-10.1)
[2021-12-05 09:42] LABS: ALBUMIN 2.2 g/dl (3.4-5.0); BLOOD UREA NITROGEN 27.2 mg/dL (7-18); MAGNESIUM 2.3 mg/dL (1.8-2.4)
[2021-12-05 09:45] LABS: CREATININE 0.6 mg/dL (0.55-1.3)
[2021-12-05 09:46] LABS: BILIRUBIN,TOTAL 0.5 mg/dL (0.2-1); TOT PROT 5.9 g/dl (6.4-8.2)
[2021-12-05] MEDS: ALLOPURINOL 100 MG TABLET (FP) PO SCH (10:07)
[2021-12-05] MEDS: ENOXAPARIN NA (PORCINE) 40 MG/0.4 ML DISP.SYRIN SQ SCH (10:07)
[2021-12-05] MEDS: predniSONE 20 MG TABLET (UD) PO SCH (10:07)
[2021-12-05] MEDS: PANTOPRAZOLE 40 MG TABLET PO SCH (10:08)
[2021-12-05] MEDS: MAGNESIUM OXIDE 400 MG TABLET (FP) PO SCH ×2 (10:08→22:25)
[2021-12-05 18:07] LABS: BODY FLUID ALBUMIN 2.1 g/dL (Not Estab.)
[2021-12-05] MEDS: POTASSIUM CHLORIDE IV SCH ×2 (18:08→22:27)
[2021-12-05] MEDS: MAGNESIUM SULFATE IV SCH ×2 (18:08→22:27)
[2021-12-05] MEDS: AMINO ACIDS IV SCH ×2 (18:08→22:27)
[2021-12-05] MEDS: [UNRECOGNIZED DRUG - OTHER] IV SCH ×2 (18:08→22:27)
[2021-12-05] MEDS ORDERED: FAT EMULSIONS 20% 250 ML PREMIX INFUS.BAG IV SCH (22:00)
[2021-12-05] MEDS: ATORVASTATIN CA 40 MG TABLET (FP) PO SCH (22:25)
[2021-12-05] MEDS: FAT EMULSION/OLIVE/SOY/PHOSPHO 250 ML IV SCH (22:26)
[2021-12-06] MEDS ORDERED: DEXTROSE 5%-WATER - 50 ML IVPB ONE ×3 (01:20→17:14)
[2021-12-06] MEDS ORDERED: PIPERACILLIN/TAZOBACTAM 3.375 GM VIAL IVPB ONE ×3 (01:20→17:14)
[2021-12-06] MEDS: PIPERACILLIN/TAZOB 3.375 GM 3.375 GM in DEXTROSE 5%-WATER - 50 ML IVPB SCH ×3 (01:55→17:34)
[2021-12-06] MEDS: AMINO ACIDS/PROTEIN HYDROLYS 30 ML LIQUID.PKT PO SCH ×2 (08:36→17:34)
[2021-12-06 09:17] LABS: BASO % 0.7 % (0-2.0); EOS % 0.9 % (0-4.5); HEMATOCRIT 27.1 % (35.4-49); HEMOGLOBIN 8.8 GM/dL (11.7-16.9); LYMPH % 6.4 % (8-40); MCH 29.9 pg (25.7-33.7); MCHC 32.4 g/dl (32.0-35.9); MEAN CELL VOLUME 92.4 fl (80-96); MEAN PLT VOLUME 8.4 fl (7.5-11.1); MONO % 7.8 % (3.8-10.2); NEUT % 84.2 % (42.8-82.8); PLATELET COUNT 207 10^3/uL (134-434); RBC 2.94 M/mm3 (4.00-5.60); RDW 18.9 % (11.9-15.9)
[2021-12-06] MEDS ORDERED: FUROSEMIDE 40 MG/4 ML INJECTABLE VIAL IVPUSH ONE ×2 (09:57)
[2021-12-06] MEDS ORDERED: POTASSIUM CHLORIDE ORAL LIQUID 20 MEQ/15 ML PO ONE (10:00)
[2021-12-06 10:03] LABS: BLOOD UREA NITROGEN 33.9 mg/dL (7-18); CALCIUM 7.1 mg/dL (8.5-10.1)
[2021-12-06 10:04] LABS: ALBUMIN 2.1 g/dl (3.4-5.0); MAGNESIUM 2.6 mg/dL (1.8-2.4)
[2021-12-06 10:07] LABS: CREATININE 0.5 mg/dL (0.55-1.3)
[2021-12-06 10:08] LABS: TOT PROT 5.8 g/dl (6.4-8.2)
[2021-12-06 10:11] LABS: BILIRUBIN,TOTAL 0.5 mg/dL (0.2-1)
[2021-12-06] MEDS: predniSONE 20 MG TABLET (UD) PO SCH (10:59)
[2021-12-06] MEDS: PANTOPRAZOLE 40 MG TABLET PO SCH (10:59)
[2021-12-06] MEDS: ENOXAPARIN NA (PORCINE) 40 MG/0.4 ML DISP.SYRIN SQ SCH (10:59)
[2021-12-06] MEDS: ALLOPURINOL 100 MG TABLET (FP) PO SCH (10:59)
[2021-12-06] MEDS: [UNRECOGNIZED DRUG - OTHER] IV SCH (12:47)
[2021-12-06] MEDS: AMINO ACIDS IV SCH (12:47)
[2021-12-06] MEDS: POTASSIUM CHLORIDE IV SCH (12:47)
[2021-12-06] MEDS: MAGNESIUM SULFATE IV SCH (12:47)
[2021-12-06] MEDS: MAGNESIUM OXIDE 400 MG TABLET (FP) PO SCH (12:47)
[2021-12-06] MEDS: VANCOMYCIN/WATER FOR INJ (PEG) 1,000 MG/200 ML BAG IVPB SCH (14:44)
[2021-12-06] MEDS: POTASSIUM CHLORIDE 10 MEQ in AMINO ACIDS 4.25%/D5W 1,000 ML IV SCH ×2 (14:45→23:15)
[2021-12-06] MEDS: ATORVASTATIN CA 40 MG TABLET (FP) PO SCH (22:39)
[2021-12-07] MEDS ORDERED: DEXTROSE 5%-WATER - 50 ML IVPB ONE ×3 (00:44→17:45)
[2021-12-07] MEDS ORDERED: PIPERACILLIN/TAZOBACTAM 3.375 GM VIAL IVPB ONE ×3 (00:44→17:45)
[2021-12-07] MEDS: PIPERACILLIN/TAZOB 3.375 GM 3.375 GM in DEXTROSE 5%-WATER - 50 ML IVPB SCH ×3 (01:15→18:28)
[2021-12-07] MEDS: PANTOPRAZOLE 40 MG TABLET PO SCH (09:11)
[2021-12-07] MEDS: predniSONE 10 MG TABLET (UD) PO SCH (09:11)
[2021-12-07] MEDS: ENOXAPARIN NA (PORCINE) 40 MG/0.4 ML DISP.SYRIN SQ SCH (09:12)
[2021-12-07] MEDS: ALLOPURINOL 100 MG TABLET (FP) PO SCH (09:12)
[2021-12-07] MEDS: AMINO ACIDS/PROTEIN HYDROLYS 30 ML LIQUID.PKT PO SCH ×2 (09:12→18:28)
[2021-12-07 09:45] LABS: BASO % 0.5 % (0-2.0); EOS % 0.5 % (0-4.5); HEMATOCRIT 25.4 % (35.4-49); HEMOGLOBIN 8.4 GM/dL (11.7-16.9); LYMPH % 9.9 % (8-40); MCH 30.5 pg (25.7-33.7); MEAN CELL VOLUME 92.4 fl (80-96); MEAN PLT VOLUME 8.4 fl (7.5-11.1); NEUT % 79.1 % (42.8-82.8); PLATELET COUNT 190 10^3/uL (134-434); RBC 2.75 M/mm3 (4.00-5.60); RDW 19.7 % (11.9-15.9)
[2021-12-07] MEDS: VANCOMYCIN/WATER 1250 MG 1,250 MG/250 ML BAG IVPB SCH (09:49)
[2021-12-07] MEDS ORDERED: FUROSEMIDE 40 MG/4 ML INJECTABLE VIAL IVPUSH SCH (10:00)
[2021-12-07] MEDS ORDERED: POTASSIUM CHLORIDE TABS 20 MEQ TABLET.ER (FP) PO ONE (10:30)
[2021-12-07 10:43] LABS: ALBUMIN 2.1 g/dl (3.4-5.0); BLOOD UREA NITROGEN 38.4 mg/dL (7-18); CALCIUM 7.7 mg/dL (8.5-10.1)
[2021-12-07 10:44] LABS: CREATININE 0.6 mg/dL (0.55-1.3); MAGNESIUM 2.2 mg/dL (1.8-2.4)
[2021-12-07 10:45] LABS: BILIRUBIN,TOTAL 0.4 mg/dL (0.2-1)
[2021-12-07] MEDS: POTASSIUM CHLORIDE 20 MEQ in AMINO ACIDS 4.25%/D5W 1,000 ML IV SCH (13:01)
[2021-12-07] MEDS: BANATROL PLUS POWDER PACKET PO SCH ×2 (13:01→21:09)
[2021-12-07] MEDS: FAT EMULSION/OLIVE/SOY/PHOSPHO 250 ML IV SCH (21:09)
[2021-12-07] MEDS: ATORVASTATIN CA 40 MG TABLET (FP) PO SCH (21:09)
[2021-12-08] MEDS ORDERED: PIPERACILLIN/TAZOBACTAM 3.375 GM VIAL IVPB ONE ×3 (01:33→17:08)
[2021-12-08] MEDS ORDERED: DEXTROSE 5%-WATER - 50 ML IVPB ONE ×3 (01:34→17:08)
[2021-12-08] MEDS: PIPERACILLIN/TAZOB 3.375 GM 3.375 GM in DEXTROSE 5%-WATER - 50 ML IVPB SCH ×3 (02:04→17:10)
[2021-12-08] MEDS: POTASSIUM CHLORIDE 20 MEQ in AMINO ACIDS 4.25%/D5W 1,000 ML IV SCH ×2 (07:49→10:31)
[2021-12-08] MEDS: BANATROL PLUS POWDER PACKET PO SCH ×3 (07:50→21:44)
[2021-12-08 08:58] LABS: BASO % 0.8 % (0-2.0); HEMATOCRIT 24.3 % (35.4-49); HEMOGLOBIN 7.9 GM/dL (11.7-16.9); LYMPH % 9.3 % (8-40); MCH 30.3 pg (25.7-33.7); MCHC 32.4 g/dl (32.0-35.9); MEAN CELL VOLUME 93.6 fl (80-96); MEAN PLT VOLUME 8.4 fl (7.5-11.1); MONO % 6.9 % (3.8-10.2); PLATELET COUNT 221 10^3/uL (134-434); RBC 2.59 M/mm3 (4.00-5.60); RDW 19.8 % (11.9-15.9)
[2021-12-08 09:11] LABS: MAGNESIUM 1.9 mg/dL (1.8-2.4)
[2021-12-08 09:14] LABS: BLOOD UREA NITROGEN 33.3 mg/dL (7-18); CALCIUM 7.6 mg/dL (8.5-10.1); CREATININE 0.7 mg/dL (0.55-1.3)
[2021-12-08 09:16] LABS: BILIRUBIN,TOTAL 0.4 mg/dL (0.2-1); TOT PROT 5.6 g/dl (6.4-8.2)
[2021-12-08] MEDS ORDERED: POTASSIUM CHLORIDE TABS 20 MEQ TABLET.ER (FP) PO ONE (09:20)
[2021-12-08] MEDS: AMINO ACIDS/PROTEIN HYDROLYS 30 ML LIQUID.PKT PO SCH ×2 (09:38→17:11)
[2021-12-08] MEDS: VANCOMYCIN/WATER 1250 MG 1,250 MG/250 ML BAG IVPB SCH (09:39)
[2021-12-08] MEDS: predniSONE 10 MG TABLET (UD) PO SCH (09:40)
[2021-12-08] MEDS: PANTOPRAZOLE 40 MG TABLET PO SCH (09:40)
[2021-12-08] MEDS: ALLOPURINOL 100 MG TABLET (FP) PO SCH (09:40)
[2021-12-08] MEDS: ATORVASTATIN CA 40 MG TABLET (FP) PO SCH (21:44)
[2021-12-09] MEDS ORDERED: PIPERACILLIN/TAZOBACTAM 3.375 GM VIAL IVPB ONE ×3 (01:03→17:54)
[2021-12-09] MEDS ORDERED: DEXTROSE 5%-WATER - 50 ML IVPB ONE ×3 (01:04→17:54)
[2021-12-09] MEDS: PIPERACILLIN/TAZOB 3.375 GM 3.375 GM in DEXTROSE 5%-WATER - 50 ML IVPB SCH ×3 (01:13→18:06)
[2021-12-09] MEDS: BANATROL PLUS POWDER PACKET PO SCH ×3 (06:22→22:05)
[2021-12-09] MEDS: POTASSIUM CHLORIDE 20 MEQ in AMINO ACIDS 4.25%/D5W 1,000 ML IV SCH ×2 (06:22→12:48)
[2021-12-09] MEDS: AMINO ACIDS/PROTEIN HYDROLYS 30 ML LIQUID.PKT PO SCH ×2 (08:31→18:06)
[2021-12-09] MEDS: ALLOPURINOL 100 MG TABLET (FP) PO SCH (09:20)
[2021-12-09] MEDS: PANTOPRAZOLE 40 MG TABLET PO SCH (09:20)
[2021-12-09] MEDS: predniSONE 10 MG TABLET (UD) PO SCH (09:20)
[2021-12-09 09:27] LABS: BASO % 1.1 % (0-2.0); EOS % 1.8 % (0-4.5); HEMATOCRIT 24.3 % (35.4-49); LYMPH % 11.2 % (8-40); MCH 31.1 pg (25.7-33.7); MEAN CELL VOLUME 94.1 fl (80-96); MONO % 8.9 % (3.8-10.2); PLATELET COUNT 206 10^3/uL (134-434); RBC 2.58 M/mm3 (4.00-5.60); RDW 20.3 % (11.9-15.9); WHITE BLOOD COUNT 10.7 K/mm3 (4.0-10.0)
[2021-12-09 10:38] LABS: ALBUMIN 2.1 g/dl (3.4-5.0); CALCIUM 7.5 mg/dL (8.5-10.1)
[2021-12-09 10:39] LABS: BLOOD UREA NITROGEN 25.8 mg/dL (7-18); MAGNESIUM 1.7 mg/dL (1.8-2.4)
[2021-12-09 10:43] LABS: BILIRUBIN,TOTAL 0.5 mg/dL (0.2-1)
[2021-12-09 10:44] LABS: TOT PROT 5.7 g/dl (6.4-8.2)
[2021-12-09 10:53] LABS: CREATININE 0.7 mg/dL (0.55-1.3)
[2021-12-09] MEDS: VANCOMYCIN/WATER 1250 MG 1,250 MG/250 ML BAG IVPB SCH (11:07)
[2021-12-09] MEDS ORDERED: MAGNESIUM SULF 50% (8.12 MEQ/2 ML-1 GM VIAL) IVPB ONE ×2 (17:46→18:00)
[2021-12-10] MEDS ORDERED: PIPERACILLIN/TAZOBACTAM 3.375 GM VIAL IVPB ONE ×3 (01:09→17:03)
[2021-12-10] MEDS ORDERED: DEXTROSE 5%-WATER - 50 ML IVPB ONE ×3 (01:09→17:03)
[2021-12-10] MEDS: PIPERACILLIN/TAZOB 3.375 GM 3.375 GM in DEXTROSE 5%-WATER - 50 ML IVPB SCH ×3 (01:36→17:24)
[2021-12-10] MEDS: POTASSIUM CHLORIDE 20 MEQ in AMINO ACIDS 4.25%/D5W 1,000 ML IV SCH ×2 (04:07→18:04)
[2021-12-10] MEDS: BANATROL PLUS POWDER PACKET PO SCH ×4 (05:06→21:30)
[2021-12-10 09:45] LABS: BASO % 1.1 % (0-2.0); EOS % 2.5 % (0-4.5); HEMATOCRIT 22.2 % (35.4-49); HEMOGLOBIN 7.3 GM/dL (11.7-16.9); LYMPH % 10.3 % (8-40); MCHC 32.7 g/dl (32.0-35.9); MEAN CELL VOLUME 94.6 fl (80-96); MEAN PLT VOLUME 7.8 fl (7.5-11.1); MONO % 8.9 % (3.8-10.2); NEUT % 77.2 % (42.8-82.8); PLATELET COUNT 207 10^3/uL (134-434); RBC 2.35 M/mm3 (4.00-5.60); RDW 20.2 % (11.9-15.9); WHITE BLOOD COUNT 7.4 K/mm3 (4.0-10.0)
[2021-12-10 10:13] LABS: CALCIUM 7.1 mg/dL (8.5-10.1)
[2021-12-10 10:14] LABS: ALBUMIN 1.9 g/dl (3.4-5.0)
[2021-12-10 10:17] LABS: CREATININE 0.5 mg/dL (0.55-1.3)
[2021-12-10 10:18] LABS: BILIRUBIN,TOTAL 0.4 mg/dL (0.2-1)
[2021-12-10 10:19] LABS: TOT PROT 5.3 g/dl (6.4-8.2)
[2021-12-10] MEDS: predniSONE 20 MG TABLET (UD) PO SCH (10:41)
[2021-12-10] MEDS: AMINO ACIDS/PROTEIN HYDROLYS 30 ML LIQUID.PKT PO SCH ×2 (10:41→16:45)
[2021-12-10] MEDS: PANTOPRAZOLE 40 MG TABLET PO SCH (10:41)
[2021-12-10] MEDS: ALLOPURINOL 100 MG TABLET (FP) PO SCH (10:42)
[2021-12-10] MEDS: VANCOMYCIN/WATER 1250 MG 1,250 MG/250 ML BAG IVPB SCH (11:28)
[2021-12-10 16:26] LABS: SARS-CoV-2 NAA Not Detected (Not Detected)
[2021-12-10] MEDS: MIRTAZAPINE 15 MG TABLET (FP) PO SCH (21:30)
[2021-12-10] MEDS: FAT EMULSION/OLIVE/SOY/PHOSPHO 250 ML IV SCH (22:58)
[2021-12-11] MEDS ORDERED: PIPERACILLIN/TAZOBACTAM 3.375 GM VIAL IVPB ONE ×3 (01:13→16:59)
[2021-12-11] MEDS ORDERED: DEXTROSE 5%-WATER - 50 ML IVPB ONE ×3 (01:13→16:59)
[2021-12-11] MEDS: POTASSIUM CHLORIDE 20 MEQ in AMINO ACIDS 4.25%/D5W 1,000 ML IV SCH ×3 (01:57→23:08)
[2021-12-11] MEDS: PIPERACILLIN/TAZOB 3.375 GM 3.375 GM in DEXTROSE 5%-WATER - 50 ML IVPB SCH ×3 (01:57→17:31)
[2021-12-11] MEDS: BANATROL PLUS POWDER PACKET PO SCH ×3 (05:19→22:09)
[2021-12-11] MEDS: AMINO ACIDS/PROTEIN HYDROLYS 30 ML LIQUID.PKT PO SCH ×2 (08:10→17:32)
[2021-12-11 09:58] LABS: BASO % 1.5 % (0-2.0); EOS % 4.5 % (0-4.5); HEMATOCRIT 23.9 % (35.4-49); HEMOGLOBIN 7.9 GM/dL (11.7-16.9); LYMPH % 8.4 % (8-40); MCH 31.8 pg (25.7-33.7); MCHC 33.1 g/dl (32.0-35.9); MEAN CELL VOLUME 96.3 fl (80-96); MEAN PLT VOLUME 7.9 fl (7.5-11.1); MONO % 6.1 % (3.8-10.2); NEUT % 79.5 % (42.8-82.8); PLATELET COUNT 240 10^3/uL (134-434); RBC 2.48 M/mm3 (4.00-5.60); RDW 21.4 % (11.9-15.9); WHITE BLOOD COUNT 8.2 K/mm3 (4.0-10.0)
[2021-12-11 10:25] LABS: BLOOD UREA NITROGEN 19.5 mg/dL (7-18); CALCIUM 7.3 mg/dL (8.5-10.1); MAGNESIUM 1.7 mg/dL (1.8-2.4)
[2021-12-11 10:27] LABS: BILIRUBIN,TOTAL 0.4 mg/dL (0.2-1); CREATININE 0.6 mg/dL (0.55-1.3); TOT PROT 5.4 g/dl (6.4-8.2)
[2021-12-11 10:33] LABS: ANISOCYTOSIS 1+; MACROCYTOSIS 1+
[2021-12-11] MEDS: ALLOPURINOL 100 MG TABLET (FP) PO SCH (10:41)
[2021-12-11] MEDS: PANTOPRAZOLE 40 MG TABLET PO SCH (10:41)
[2021-12-11] MEDS: predniSONE 20 MG TABLET (UD) PO SCH (10:41)
[2021-12-11] MEDS: VANCOMYCIN/WATER 1250 MG 1,250 MG/250 ML BAG IVPB SCH (10:42)
[2021-12-11] MEDS: ENOXAPARIN NA (PORCINE) 40 MG/0.4 ML DISP.SYRIN SQ SCH (17:31)
[2021-12-11] MEDS: MIRTAZAPINE 15 MG TABLET (FP) PO SCH (22:09)
[2021-12-12] MEDS ORDERED: PIPERACILLIN/TAZOBACTAM 3.375 GM VIAL IVPB ONE ×3 (00:52→17:29)
[2021-12-12] MEDS ORDERED: DEXTROSE 5%-WATER - 50 ML IVPB ONE ×3 (00:52→17:30)
[2021-12-12] MEDS: PIPERACILLIN/TAZOB 3.375 GM 3.375 GM in DEXTROSE 5%-WATER - 50 ML IVPB SCH ×3 (02:08→17:37)
[2021-12-12] MEDS: BANATROL PLUS POWDER PACKET PO SCH ×3 (05:28→21:25)
[2021-12-12] MEDS: AMINO ACIDS/PROTEIN HYDROLYS 30 ML LIQUID.PKT PO SCH ×2 (08:57→17:37)
[2021-12-12] MEDS: predniSONE 20 MG TABLET (UD) PO SCH (10:29)
[2021-12-12] MEDS: ALLOPURINOL 100 MG TABLET (FP) PO SCH (10:30)
[2021-12-12] MEDS: PANTOPRAZOLE 40 MG TABLET PO SCH (10:30)
[2021-12-12] MEDS: VANCOMYCIN/WATER 1250 MG 1,250 MG/250 ML BAG IVPB SCH (10:30)
[2021-12-12] MEDS: ENOXAPARIN NA (PORCINE) 40 MG/0.4 ML DISP.SYRIN SQ SCH (10:30)
[2021-12-12] MEDS: POTASSIUM CHLORIDE 20 MEQ in AMINO ACIDS 4.25%/D5W 1,000 ML IV SCH (10:30)
[2021-12-12] MEDS ORDERED: ACETAMINOPHEN 1000 MG/100 ML BAG IVPB ONE (14:15)
[2021-12-12] MEDS: MIRTAZAPINE 15 MG TABLET (FP) PO SCH (21:25)
[2021-12-12] MEDS: FAT EMULSION/OLIVE/SOY/PHOSPHO 250 ML IV SCH (21:26)
[2021-12-13] MEDS: POTASSIUM CHLORIDE 20 MEQ in AMINO ACIDS 4.25%/D5W 1,000 ML IV SCH ×2 (01:26→15:31)
[2021-12-13] MEDS ORDERED: PIPERACILLIN/TAZOBACTAM 3.375 GM VIAL IVPB ONE ×3 (01:29→18:01)
[2021-12-13] MEDS ORDERED: DEXTROSE 5%-WATER - 50 ML IVPB ONE ×3 (01:29→18:02)
[2021-12-13] MEDS: PIPERACILLIN/TAZOB 3.375 GM 3.375 GM in DEXTROSE 5%-WATER - 50 ML IVPB SCH ×3 (01:33→18:06)
[2021-12-13] MEDS: BANATROL PLUS POWDER PACKET PO SCH ×3 (06:58→21:48)
[2021-12-13 09:57] LABS: EOS % 4.6 % (0-4.5); HEMATOCRIT 26.2 % (35.4-49); HEMOGLOBIN 8.6 GM/dL (11.7-16.9); LYMPH % 5.9 % (8-40); MCH 31.3 pg (25.7-33.7); MCHC 32.7 g/dl (32.0-35.9); MEAN CELL VOLUME 95.6 fl (80-96); MEAN PLT VOLUME 7.7 fl (7.5-11.1); MONO % 5.2 % (3.8-10.2); NEUT % 83.3 % (42.8-82.8); PLATELET COUNT 249 10^3/uL (134-434); RBC 2.74 M/mm3 (4.00-5.60); WHITE BLOOD COUNT 7.7 K/mm3 (4.0-10.0)
[2021-12-13 10:26] LABS: BLOOD UREA NITROGEN 21.3 mg/dL (7-18); CALCIUM 7.6 mg/dL (8.5-10.1); MAGNESIUM 1.5 mg/dL (1.8-2.4)
[2021-12-13 10:29] LABS: CREATININE 0.5 mg/dL (0.55-1.3)
[2021-12-13 10:30] LABS: BILIRUBIN,TOTAL 0.4 mg/dL (0.2-1)
[2021-12-13 10:31] LABS: TOT PROT 5.4 g/dl (6.4-8.2)
[2021-12-13] MEDS: predniSONE 20 MG TABLET (UD) PO SCH (11:22)
[2021-12-13] MEDS: ALLOPURINOL 100 MG TABLET (FP) PO SCH (11:22)
[2021-12-13] MEDS: PANTOPRAZOLE 40 MG TABLET PO SCH (11:22)
[2021-12-13] MEDS: AMINO ACIDS/PROTEIN HYDROLYS 30 ML LIQUID.PKT PO SCH ×2 (11:22→18:06)
[2021-12-13] MEDS: ENOXAPARIN NA (PORCINE) 40 MG/0.4 ML DISP.SYRIN SQ SCH (11:23)
[2021-12-13] MEDS: VANCOMYCIN/WATER 1250 MG 1,250 MG/250 ML BAG IVPB SCH (11:23)
[2021-12-13] MEDS ORDERED: POTASSIUM CHLORIDE TABS 20 MEQ TABLET.ER (FP) PO ONE (12:45)
[2021-12-13] MEDS ORDERED: MAGNESIUM 2GM/50ML STERILE WATER IVPB IVPB ONE (13:00)
[2021-12-13] MEDS: ACETAMINOPHEN 325 MG TABLET (FP) PO PRN (15:36)
[2021-12-13] MEDS: MIRTAZAPINE 15 MG TABLET (FP) PO SCH (21:48)
[2021-12-13] MEDS: FAT EMULSION/OLIVE/SOY/PHOSPHO 250 ML IV SCH (21:49)
[2021-12-14] MEDS ORDERED: PIPERACILLIN/TAZOBACTAM 3.375 GM VIAL IVPB ONE ×3 (01:03→16:29)
[2021-12-14] MEDS ORDERED: DEXTROSE 5%-WATER - 50 ML IVPB ONE ×3 (01:04→16:29)
[2021-12-14] MEDS: POTASSIUM CHLORIDE 20 MEQ in AMINO ACIDS 4.25%/D5W 1,000 ML IV SCH ×4 (01:15→19:00)
[2021-12-14] MEDS: PIPERACILLIN/TAZOB 3.375 GM 3.375 GM in DEXTROSE 5%-WATER - 50 ML IVPB SCH ×3 (01:55→17:48)
[2021-12-14] MEDS: BANATROL PLUS POWDER PACKET PO SCH ×3 (06:22→22:20)
[2021-12-14] MEDS: ACETAMINOPHEN 325 MG TABLET (FP) PO PRN (06:51)
[2021-12-14] MEDS: AMINO ACIDS/PROTEIN HYDROLYS 30 ML LIQUID.PKT PO SCH ×2 (08:16→16:40)
[2021-12-14] MEDS: ENOXAPARIN NA (PORCINE) 40 MG/0.4 ML DISP.SYRIN SQ SCH (09:23)
[2021-12-14] MEDS: predniSONE 20 MG TABLET (UD) PO SCH (09:24)
[2021-12-14] MEDS: VANCOMYCIN/WATER 1250 MG 1,250 MG/250 ML BAG IVPB SCH (09:24)
[2021-12-14] MEDS: PANTOPRAZOLE 40 MG TABLET PO SCH (09:24)
[2021-12-14] MEDS: ALLOPURINOL 100 MG TABLET (FP) PO SCH (09:24)
[2021-12-14 13:21] LABS: BASO % 0.8 % (0-2.0); EOS % 8.2 % (0-4.5); HEMOGLOBIN 8.2 GM/dL (11.7-16.9); LYMPH % 4.5 % (8-40); MCH 30.7 pg (25.7-33.7); MCHC 31.7 g/dl (32.0-35.9); MEAN CELL VOLUME 96.8 fl (80-96); MEAN PLT VOLUME 7.9 fl (7.5-11.1); MONO % 4.5 % (3.8-10.2); PLATELET COUNT 195 10^3/uL (134-434); RBC 2.68 M/mm3 (4.00-5.60); RDW 20.3 % (11.9-15.9); WHITE BLOOD COUNT 6.2 K/mm3 (4.0-10.0)
[2021-12-14 13:48] LABS: CALCIUM 7.3 mg/dL (8.5-10.1)
[2021-12-14 13:49] LABS: BLOOD UREA NITROGEN 26.6 mg/dL (7-18); MAGNESIUM 1.5 mg/dL (1.8-2.4)
[2021-12-14 13:52] LABS: CREATININE 0.7 mg/dL (0.55-1.3)
[2021-12-14 13:53] LABS: BILIRUBIN,TOTAL 0.3 mg/dL (0.2-1); TOT PROT 5.1 g/dl (6.4-8.2)
[2021-12-14] MEDS ORDERED: MAGNESIUM SULF 50% (8.12 MEQ/2 ML-1 GM VIAL) IVPB ONE (14:03)
[2021-12-14] MEDS ORDERED: POTASSIUM CHLORIDE TABS 20 MEQ TABLET.ER (FP) PO ONE (14:03)
[2021-12-14] MEDS ORDERED: POTASSIUM CHLORIDE 20 MEQ in AMINO ACIDS 4.25%/D5W 1,000 ML IV SCH (16:30)
[2021-12-14] MEDS: POTASSIUM CHLORIDE TABS 20 MEQ TABLET.ER (FP) PO SCH (21:28)
[2021-12-14] MEDS: MIRTAZAPINE 15 MG TABLET (FP) PO SCH (21:28)
[2021-12-15] MEDS ORDERED: PIPERACILLIN/TAZOBACTAM 3.375 GM VIAL IVPB ONE ×4 (01:13→17:13)
[2021-12-15] MEDS ORDERED: DEXTROSE 5%-WATER - 50 ML IVPB ONE ×4 (01:13→17:13)
[2021-12-15] MEDS: PIPERACILLIN/TAZOB 3.375 GM 3.375 GM in DEXTROSE 5%-WATER - 50 ML IVPB SCH ×3 (01:31→17:29)
[2021-12-15] MEDS: POTASSIUM CHLORIDE 20 MEQ in AMINO ACIDS 4.25%/D5W 1,000 ML IV SCH ×3 (05:22→16:31)
[2021-12-15] MEDS: BANATROL PLUS POWDER PACKET PO SCH ×3 (06:18→22:46)
[2021-12-15] MEDS: POTASSIUM CHLORIDE TABS 20 MEQ TABLET.ER (FP) PO SCH ×2 (09:45→22:46)
[2021-12-15] MEDS: AMINO ACIDS/PROTEIN HYDROLYS 30 ML LIQUID.PKT PO SCH ×2 (09:45→17:29)
[2021-12-15] MEDS: PANTOPRAZOLE 40 MG TABLET PO SCH (09:45)
[2021-12-15] MEDS: ALLOPURINOL 100 MG TABLET (FP) PO SCH (09:45)
[2021-12-15] MEDS: predniSONE 20 MG TABLET (UD) PO SCH (09:47)
[2021-12-15] MEDS: ENOXAPARIN NA (PORCINE) 40 MG/0.4 ML DISP.SYRIN SQ SCH (09:47)
[2021-12-15 11:46] LABS: BASO % 0.9 % (0-2.0); EOS % 7.7 % (0-4.5); HEMATOCRIT 26.3 % (35.4-49); HEMOGLOBIN 8.5 GM/dL (11.7-16.9); LYMPH % 7.5 % (8-40); MCH 30.8 pg (25.7-33.7); MCHC 32.2 g/dl (32.0-35.9); MEAN CELL VOLUME 95.5 fl (80-96); MONO % 6.7 % (3.8-10.2); NEUT % 77.2 % (42.8-82.8); PLATELET COUNT 183 10^3/uL (134-434); RBC 2.76 M/mm3 (4.00-5.60); RDW 20.2 % (11.9-15.9); WHITE BLOOD COUNT 7.2 K/mm3 (4.0-10.0)
[2021-12-15 11:55] LABS: CALCIUM 7.3 mg/dL (8.5-10.1)
[2021-12-15 11:56] LABS: ALBUMIN 2.1 g/dl (3.4-5.0); BLOOD UREA NITROGEN 27.7 mg/dL (7-18); MAGNESIUM 1.6 mg/dL (1.8-2.4)
[2021-12-15 11:59] LABS: CREATININE 0.5 mg/dL (0.55-1.3)
[2021-12-15 12:01] LABS: BILIRUBIN,TOTAL 0.4 mg/dL (0.2-1); TOT PROT 5.4 g/dl (6.4-8.2)
[2021-12-15] MEDS: VANCOMYCIN/WATER 1250 MG 1,250 MG/250 ML BAG IVPB SCH (12:03)
[2021-12-15] MEDS: MIRTAZAPINE 15 MG TABLET (FP) PO SCH (22:45)
[2021-12-16] MEDS ORDERED: DEXTROSE 5%-WATER - 50 ML IVPB ONE ×3 (00:47→17:45)
[2021-12-16] MEDS ORDERED: PIPERACILLIN/TAZOBACTAM 3.375 GM VIAL IVPB ONE ×3 (00:47→17:45)
[2021-12-16] MEDS: PIPERACILLIN/TAZOB 3.375 GM 3.375 GM in DEXTROSE 5%-WATER - 50 ML IVPB SCH ×3 (01:40→18:03)
[2021-12-16] MEDS: POTASSIUM CHLORIDE 20 MEQ in AMINO ACIDS 4.25%/D5W 1,000 ML IV SCH ×2 (04:05→18:04)
[2021-12-16] MEDS: BANATROL PLUS POWDER PACKET PO SCH ×3 (05:43→21:51)
[2021-12-16] MEDS: AMINO ACIDS/PROTEIN HYDROLYS 30 ML LIQUID.PKT PO SCH ×2 (08:10→18:03)
[2021-12-16 10:01] LABS: BASO % 0.6 % (0-2.0); EOS % 6.6 % (0-4.5); HEMATOCRIT 26.3 % (35.4-49); HEMOGLOBIN 8.7 GM/dL (11.7-16.9); LYMPH % 7.8 % (8-40); MCH 31.4 pg (25.7-33.7); MCHC 33.1 g/dl (32.0-35.9); MEAN CELL VOLUME 94.9 fl (80-96); MEAN PLT VOLUME 7.5 fl (7.5-11.1); MONO % 6.9 % (3.8-10.2); NEUT % 78.1 % (42.8-82.8); PLATELET COUNT 172 10^3/uL (134-434); RBC 2.77 M/mm3 (4.00-5.60); RDW 20.2 % (11.9-15.9); WHITE BLOOD COUNT 6.8 K/mm3 (4.0-10.0)
[2021-12-16] MEDS: POTASSIUM CHLORIDE TABS 20 MEQ TABLET.ER (FP) PO SCH ×2 (10:06→21:52)
[2021-12-16] MEDS: PANTOPRAZOLE 40 MG TABLET PO SCH (10:07)
[2021-12-16] MEDS: ENOXAPARIN NA (PORCINE) 40 MG/0.4 ML DISP.SYRIN SQ SCH (10:07)
[2021-12-16] MEDS: ALLOPURINOL 100 MG TABLET (FP) PO SCH (10:07)
[2021-12-16] MEDS: predniSONE 20 MG TABLET (UD) PO SCH (10:07)
[2021-12-16 10:22] LABS: CALCIUM 7.3 mg/dL (8.5-10.1)
[2021-12-16 10:23] LABS: ALBUMIN 2.2 g/dl (3.4-5.0); BLOOD UREA NITROGEN 28.6 mg/dL (7-18); MAGNESIUM 1.5 mg/dL (1.8-2.4)
[2021-12-16 10:25] LABS: CREATININE 0.6 mg/dL (0.55-1.3)
[2021-12-16 10:27] LABS: BILIRUBIN,TOTAL 0.3 mg/dL (0.2-1); TOT PROT 5.3 g/dl (6.4-8.2)
[2021-12-16] MEDS: VANCOMYCIN/WATER 1250 MG 1,250 MG/250 ML BAG IVPB SCH (10:46)
[2021-12-16] MEDS ORDERED: MAGNESIUM SULF 50% (8.12 MEQ/2 ML-1 GM VIAL) IVPB ONE (12:06)
[2021-12-16] MEDS ORDERED: ACETAMINOPHEN 1000 MG/100 ML BAG IVPB ONE (12:09)
[2021-12-16] MEDS: MULTIVIT-MINERALS ORAL LIQUID PO SCH (13:07)
[2021-12-16] MEDS: MIRTAZAPINE 15 MG TABLET (FP) PO SCH (21:52)
[2021-12-16] MEDS: MAGNESIUM OXIDE 400 MG TABLET (FP) PO SCH (21:52)
[2021-12-17] MEDS ORDERED: DEXTROSE 5%-WATER - 50 ML IVPB ONE ×2 (01:26→09:42)
[2021-12-17] MEDS ORDERED: PIPERACILLIN/TAZOBACTAM 3.375 GM VIAL IVPB ONE ×2 (01:26→09:42)
[2021-12-17] MEDS: PIPERACILLIN/TAZOB 3.375 GM 3.375 GM in DEXTROSE 5%-WATER - 50 ML IVPB SCH ×2 (02:00→09:54)
[2021-12-17] MEDS: BANATROL PLUS POWDER PACKET PO SCH ×3 (05:52→21:50)
[2021-12-17 07:31] LABS: BASO % 0.9 % (0-2.0); EOS % 6.9 % (0-4.5); LYMPH % 7.6 % (8-40); MCH 31.1 pg (25.7-33.7); MCHC 32.3 g/dl (32.0-35.9); MEAN PLT VOLUME 7.6 fl (7.5-11.1); MONO % 5.7 % (3.8-10.2); NEUT % 78.9 % (42.8-82.8); PLATELET COUNT 164 10^3/uL (134-434); RBC 2.91 M/mm3 (4.00-5.60); RDW 20.2 % (11.9-15.9); WHITE BLOOD COUNT 6.9 K/mm3 (4.0-10.0)
[2021-12-17 07:56] LABS: BILIRUBIN,TOTAL 0.6 mg/dL (0.2-1)
[2021-12-17 08:03] LABS: ALBUMIN 2.2 g/dl (3.4-5.0); CALCIUM 7.3 mg/dL (8.5-10.1)
[2021-12-17 08:04] LABS: BLOOD UREA NITROGEN 32.1 mg/dL (7-18)
[2021-12-17 08:05] LABS: CREATININE 0.7 mg/dL (0.55-1.3)
[2021-12-17 08:09] LABS: TOT PROT 5.2 g/dl (6.4-8.2)
[2021-12-17] MEDS: POTASSIUM CHLORIDE 20 MEQ in AMINO ACIDS 4.25%/D5W 1,000 ML IV SCH ×2 (09:53→22:28)
[2021-12-17] MEDS: VANCOMYCIN/WATER 1250 MG 1,250 MG/250 ML BAG IVPB SCH (09:53)
[2021-12-17] MEDS: AMINO ACIDS/PROTEIN HYDROLYS 30 ML LIQUID.PKT PO SCH ×2 (09:54→17:15)
[2021-12-17] MEDS: PANTOPRAZOLE 40 MG TABLET PO SCH (09:54)
[2021-12-17] MEDS: ENOXAPARIN NA (PORCINE) 40 MG/0.4 ML DISP.SYRIN SQ SCH (09:54)
[2021-12-17] MEDS: POTASSIUM CHLORIDE TABS 20 MEQ TABLET.ER (FP) PO SCH ×2 (09:54→21:50)
[2021-12-17] MEDS: ALLOPURINOL 100 MG TABLET (FP) PO SCH (09:54)
[2021-12-17] MEDS: MAGNESIUM OXIDE 400 MG TABLET (FP) PO SCH ×2 (09:54→21:50)
[2021-12-17] MEDS: predniSONE 20 MG TABLET (UD) PO SCH (09:54)
[2021-12-17] MEDS: MULTIVIT-MINERALS ORAL LIQUID PO SCH ×2 (09:55→13:07)
[2021-12-17] MEDS: MIRTAZAPINE 15 MG TABLET (FP) PO SCH (21:50)
[2021-12-17] MEDS: ACETAMINOPHEN 325 MG TABLET (FP) PO PRN (23:32)
[2021-12-18] MEDS ORDERED: ACETAMINOPHEN 1000 MG/100 ML BAG IVPB ONE (06:29)
[2021-12-18] MEDS: BANATROL PLUS POWDER PACKET PO SCH ×3 (06:38→21:33)
[2021-12-18] MEDS: AMINO ACIDS/PROTEIN HYDROLYS 30 ML LIQUID.PKT PO SCH ×2 (09:10→17:50)
[2021-12-18] MEDS: MULTIVIT-MINERALS ORAL LIQUID PO SCH (09:10)
[2021-12-18] MEDS: PANTOPRAZOLE 40 MG TABLET PO SCH (09:11)
[2021-12-18] MEDS: POTASSIUM CHLORIDE TABS 20 MEQ TABLET.ER (FP) PO SCH ×2 (09:11→21:31)
[2021-12-18] MEDS: predniSONE 20 MG TABLET (UD) PO SCH (09:11)
[2021-12-18] MEDS: ALLOPURINOL 100 MG TABLET (FP) PO SCH (09:11)
[2021-12-18] MEDS: MAGNESIUM OXIDE 400 MG TABLET (FP) PO SCH ×2 (09:11→21:32)
[2021-12-18] MEDS: ENOXAPARIN NA (PORCINE) 40 MG/0.4 ML DISP.SYRIN SQ SCH (12:27)
[2021-12-18 15:52] LABS: HEMATOCRIT 27.2 % (35.4-49); MCH 31.4 pg (25.7-33.7); MCHC 32.9 g/dl (32.0-35.9); MEAN CELL VOLUME 95.6 fl (80-96); MEAN PLT VOLUME 7.8 fl (7.5-11.1); PLATELET COUNT 173 10^3/uL (134-434); RBC 2.85 M/mm3 (4.00-5.60); RDW 20.1 % (11.9-15.9); WHITE BLOOD COUNT 8.4 K/mm3 (4.0-10.0)
[2021-12-18 16:13] LABS: CALCIUM 7.8 mg/dL (8.5-10.1)
[2021-12-18 16:14] LABS: ALBUMIN 2.1 g/dl (3.4-5.0)
[2021-12-18 16:17] LABS: CREATININE 0.7 mg/dL (0.55-1.3)
[2021-12-18 16:18] LABS: BILIRUBIN,TOTAL 0.4 mg/dL (0.2-1); TOT PROT 5.4 g/dl (6.4-8.2)
[2021-12-18 17:38] LABS: ANISOCYTOSIS 2+; MACROCYTOSIS 0; TEAR DROP CELLS 1+
[2021-12-18] MEDS ORDERED: CEFEPIME HCL 1 GM VIAL (RESTRICTED TO ID) ONE (17:40)
[2021-12-18] MEDS ORDERED: DEXTROSE 5%-WATER 100 ML IVPB ONE (17:40)
[2021-12-18] MEDS: POTASSIUM CHLORIDE 20 MEQ in AMINO ACIDS 4.25%/D5W 1,000 ML IV SCH (17:49)
[2021-12-18] MEDS: CEFEPIME 1 GM in DEXTROSE 5%-WATER 1 GM/100 ML BAG IVPB SCH (17:49)
[2021-12-18] MEDS ORDERED: VANCOMYCIN/WATER FOR INJ (PEG) 1,000 MG/200 ML BAG IVPB ONE (18:00)
[2021-12-18 20:37] LABS: BF WBC & OTHER NUCLEATED CELLS 1484 /mm3
[2021-12-18 21:09] LABS: BODY FLUID MONOCYTE 20 %
[2021-12-18] MEDS: ACETAMINOPHEN 325 MG TABLET (FP) PO PRN (21:31)
[2021-12-18] MEDS: MIRTAZAPINE 15 MG TABLET (FP) PO SCH (21:32)
[2021-12-19] MEDS ORDERED: CEFEPIME HCL 1 GM VIAL (RESTRICTED TO ID) ONE ×3 (02:09→17:08)
[2021-12-19] MEDS ORDERED: DEXTROSE 5%-WATER 100 ML IVPB ONE ×3 (02:09→17:08)
[2021-12-19] MEDS: CEFEPIME 1 GM in DEXTROSE 5%-WATER 1 GM/100 ML BAG IVPB SCH ×3 (02:13→17:33)
[2021-12-19] MEDS ORDERED: METOPROLOL TARTRATE 5 MG/5 ML VIAL ONE (04:59)
[2021-12-19] MEDS ORDERED: ACETAMINOPHEN 1000 MG/100 ML BAG IVPB ONE (05:11)
[2021-12-19] MEDS ORDERED: METOPROLOL TARTRATE 5 MG/5 ML VIAL IVPUSH ONE (05:11)
[2021-12-19] MEDS: BANATROL PLUS POWDER PACKET PO SCH ×3 (07:25→21:43)
[2021-12-19 07:28] LABS: BASO % 0.6 % (0-2.0); HEMATOCRIT 26.7 % (35.4-49); HEMOGLOBIN 8.5 GM/dL (11.7-16.9); LYMPH % 4.2 % (8-40); MCH 30.8 pg (25.7-33.7); MCHC 31.9 g/dl (32.0-35.9); MEAN CELL VOLUME 96.3 fl (80-96); MONO % 5.3 % (3.8-10.2); NEUT % 85.9 % (42.8-82.8); PLATELET COUNT 175 10^3/uL (134-434); RBC 2.78 M/mm3 (4.00-5.60); RDW 20.5 % (11.9-15.9); WHITE BLOOD COUNT 8.8 K/mm3 (4.0-10.0)
[2021-12-19 07:55] LABS: ALBUMIN 2.1 g/dl (3.4-5.0); BLOOD UREA NITROGEN 33.8 mg/dL (7-18); CALCIUM 7.8 mg/dL (8.5-10.1); MAGNESIUM 1.6 mg/dL (1.8-2.4)
[2021-12-19 07:58] LABS: CREATININE 0.7 mg/dL (0.55-1.3)
[2021-12-19 07:59] LABS: BILIRUBIN,TOTAL 0.3 mg/dL (0.2-1); TOT PROT 5.2 g/dl (6.4-8.2)
[2021-12-19] MEDS ORDERED: MAGNESIUM OXIDE 400 MG TABLET (FP) PO ONE (08:45)
[2021-12-19] MEDS: POTASSIUM CHLORIDE 20 MEQ in AMINO ACIDS 4.25%/D5W 1,000 ML IV SCH ×3 (09:01→21:45)
[2021-12-19] MEDS: PANTOPRAZOLE 40 MG TABLET PO SCH (09:02)
[2021-12-19] MEDS: AMINO ACIDS/PROTEIN HYDROLYS 30 ML LIQUID.PKT PO SCH ×2 (09:02→17:33)
[2021-12-19] MEDS: ALLOPURINOL 100 MG TABLET (FP) PO SCH (09:02)
[2021-12-19] MEDS: predniSONE 20 MG TABLET (UD) PO SCH (09:02)
[2021-12-19] MEDS: ENOXAPARIN NA (PORCINE) 40 MG/0.4 ML DISP.SYRIN SQ SCH (09:02)
[2021-12-19] MEDS: POTASSIUM CHLORIDE TABS 20 MEQ TABLET.ER (FP) PO SCH ×2 (09:02→21:47)
[2021-12-19] MEDS: MULTIVIT-MINERALS ORAL LIQUID PO SCH (09:03)
[2021-12-19 12:32] LABS: ANISOCYTOSIS 1+; MACROCYTOSIS 1+
[2021-12-19] MEDS: MAGNESIUM OXIDE 400 MG TABLET (FP) PO SCH (21:47)
[2021-12-19] MEDS: MIRTAZAPINE 15 MG TABLET (FP) PO SCH (21:47)
[2021-12-20] MEDS ORDERED: CEFEPIME HCL 1 GM VIAL (RESTRICTED TO ID) ONE ×3 (02:17→17:59)
[2021-12-20] MEDS ORDERED: DEXTROSE 5%-WATER 100 ML IVPB ONE ×3 (02:18→17:59)
[2021-12-20] MEDS: CEFEPIME 1 GM in DEXTROSE 5%-WATER 1 GM/100 ML BAG IVPB SCH ×3 (02:22→18:09)
[2021-12-20] MEDS ORDERED: ACETAMINOPHEN 1000 MG/100 ML BAG IVPB ONE (03:20)
[2021-12-20] MEDS: POTASSIUM CHLORIDE 20 MEQ in AMINO ACIDS 4.25%/D5W 1,000 ML IV SCH ×3 (06:05→18:15)
[2021-12-20] MEDS: BANATROL PLUS POWDER PACKET PO SCH ×4 (06:06→22:12)
[2021-12-20 08:15] LABS: BASO % 0.7 % (0-2.0); EOS % 3.5 % (0-4.5); HEMATOCRIT 26.6 % (35.4-49); HEMOGLOBIN 8.6 GM/dL (11.7-16.9); LYMPH % 7.9 % (8-40); MCHC 32.3 g/dl (32.0-35.9); MEAN PLT VOLUME 8.1 fl (7.5-11.1); MONO % 6.7 % (3.8-10.2); NEUT % 81.2 % (42.8-82.8); PLATELET COUNT 187 10^3/uL (134-434); RBC 2.77 M/mm3 (4.00-5.60); WHITE BLOOD COUNT 7.7 K/mm3 (4.0-10.0)
[2021-12-20 08:34] LABS: BLOOD UREA NITROGEN 35.8 mg/dL (7-18); CALCIUM 8.1 mg/dL (8.5-10.1)
[2021-12-20 08:35] LABS: MAGNESIUM 1.7 mg/dL (1.8-2.4)
[2021-12-20 08:38] LABS: BILIRUBIN,TOTAL 0.4 mg/dL (0.2-1); CREATININE 0.8 mg/dL (0.55-1.3)
[2021-12-20 08:39] LABS: TOT PROT 5.3 g/dl (6.4-8.2)
[2021-12-20] MEDS: AMINO ACIDS/PROTEIN HYDROLYS 30 ML LIQUID.PKT PO SCH ×2 (09:07→18:10)
[2021-12-20] MEDS ORDERED: SODIUM CHLORIDE 250 ML IV STA (09:43)
[2021-12-20] MEDS: ALLOPURINOL 100 MG TABLET (FP) PO SCH (11:34)
[2021-12-20] MEDS: PANTOPRAZOLE 40 MG TABLET PO SCH (11:34)
[2021-12-20] MEDS: MULTIVIT-MINERALS ORAL LIQUID PO SCH (11:34)
[2021-12-20] MEDS: MAGNESIUM OXIDE 400 MG TABLET (FP) PO SCH ×3 (11:34→22:12)
[2021-12-20] MEDS: ENOXAPARIN NA (PORCINE) 40 MG/0.4 ML DISP.SYRIN SQ SCH (11:35)
[2021-12-20] MEDS: predniSONE 20 MG TABLET (UD) PO SCH (11:35)
[2021-12-20] MEDS: POTASSIUM CHLORIDE TABS 20 MEQ TABLET.ER (FP) PO SCH ×3 (11:35→22:12)
[2021-12-20] MEDS: MIDODRINE HCL 2.5 MG TABLET PO SCH ×2 (11:40→18:10)
[2021-12-20] MEDS: METOPROLOL TARTRATE 25 MG TABLET (FP) PO SCH ×2 (15:10→21:45)
[2021-12-20] MEDS: MIRTAZAPINE 15 MG TABLET (FP) PO SCH ×2 (21:43→22:12)
[2021-12-21] MEDS: CEFEPIME 1 GM in DEXTROSE 5%-WATER 1 GM/100 ML BAG IVPB SCH ×3 (03:00→17:12)
[2021-12-21] MEDS ORDERED: CEFEPIME HCL 1 GM VIAL (RESTRICTED TO ID) ONE ×3 (03:27→17:00)
[2021-12-21] MEDS ORDERED: DEXTROSE 5%-WATER 100 ML IVPB ONE ×2 (03:28→11:37)
[2021-12-21] MEDS: BANATROL PLUS POWDER PACKET PO SCH ×3 (05:56→21:45)
[2021-12-21] MEDS: POTASSIUM CHLORIDE 20 MEQ in AMINO ACIDS 4.25%/D5W 1,000 ML IV SCH ×3 (06:08→18:36)
[2021-12-21] MEDS: METOPROLOL TARTRATE 25 MG TABLET (FP) PO SCH ×2 (09:52→21:38)
[2021-12-21] MEDS: ALLOPURINOL 100 MG TABLET (FP) PO SCH (09:52)
[2021-12-21] MEDS: ENOXAPARIN NA (PORCINE) 40 MG/0.4 ML DISP.SYRIN SQ SCH (09:52)
[2021-12-21] MEDS: MAGNESIUM OXIDE 400 MG TABLET (FP) PO SCH ×2 (09:52→21:38)
[2021-12-21] MEDS: POTASSIUM CHLORIDE TABS 20 MEQ TABLET.ER (FP) PO SCH ×2 (09:52→21:37)
[2021-12-21] MEDS: MIDODRINE HCL 2.5 MG TABLET PO SCH (09:52)
[2021-12-21] MEDS: predniSONE 20 MG TABLET (UD) PO SCH (09:52)
[2021-12-21] MEDS: PANTOPRAZOLE 40 MG TABLET PO SCH (09:52)
[2021-12-21] MEDS: AMINO ACIDS/PROTEIN HYDROLYS 30 ML LIQUID.PKT PO SCH ×2 (09:53→18:36)
[2021-12-21] MEDS: MULTIVIT-MINERALS ORAL LIQUID PO SCH (12:09)
[2021-12-21] MEDS: MIDODRINE HCL 5 MG TABLET PO SCH ×2 (13:26→21:37)
[2021-12-21] MEDS: ACETAMINOPHEN 325 MG TABLET (FP) PO PRN (17:18)
[2021-12-21] MEDS: MIRTAZAPINE 15 MG TABLET (FP) PO SCH (21:37)
[2021-12-22] MEDS ORDERED: CEFEPIME HCL 1 GM VIAL (RESTRICTED TO ID) ONE ×3 (02:42→17:07)
[2021-12-22] MEDS ORDERED: DEXTROSE 5%-WATER 100 ML IVPB ONE ×3 (02:43→17:07)
[2021-12-22] MEDS: CEFEPIME 1 GM in DEXTROSE 5%-WATER 1 GM/100 ML BAG IVPB SCH ×3 (02:48→17:16)
[2021-12-22] MEDS: MIDODRINE HCL 5 MG TABLET PO SCH ×3 (05:44→22:07)
[2021-12-22] MEDS: POTASSIUM CHLORIDE 20 MEQ in AMINO ACIDS 4.25%/D5W 1,000 ML IV SCH ×3 (05:44→22:16)
[2021-12-22] MEDS: BANATROL PLUS POWDER PACKET PO SCH ×3 (05:44→22:10)
[2021-12-22] MEDS: POTASSIUM CHLORIDE TABS 20 MEQ TABLET.ER (FP) PO SCH ×2 (09:51→22:07)
[2021-12-22] MEDS: METOPROLOL TARTRATE 25 MG TABLET (FP) PO SCH ×2 (09:51→22:07)
[2021-12-22] MEDS: PANTOPRAZOLE 40 MG TABLET PO SCH (09:51)
[2021-12-22] MEDS: predniSONE 10 MG TABLET (UD) PO SCH (09:51)
[2021-12-22] MEDS: ENOXAPARIN NA (PORCINE) 40 MG/0.4 ML DISP.SYRIN SQ SCH (09:51)
[2021-12-22] MEDS: MAGNESIUM OXIDE 400 MG TABLET (FP) PO SCH ×2 (09:51→22:08)
[2021-12-22] MEDS: ALLOPURINOL 100 MG TABLET (FP) PO SCH (09:51)
[2021-12-22] MEDS: AMINO ACIDS/PROTEIN HYDROLYS 30 ML LIQUID.PKT PO SCH ×2 (09:52→17:16)
[2021-12-22] MEDS: MULTIVIT-MINERALS ORAL LIQUID PO SCH (09:52)
[2021-12-22 14:55] LABS: ALBUMIN 2.2 g/dl (3.4-5.0); CALCIUM 8.3 mg/dL (8.5-10.1)
[2021-12-22 14:56] LABS: BLOOD UREA NITROGEN 38.5 mg/dL (7-18); MAGNESIUM 1.7 mg/dL (1.8-2.4)
[2021-12-22 14:59] LABS: CREATININE 0.8 mg/dL (0.55-1.3)
[2021-12-22 15:00] LABS: BILIRUBIN,TOTAL 0.3 mg/dL (0.2-1); TOT PROT 5.6 g/dl (6.4-8.2)
[2021-12-22] MEDS: MIRTAZAPINE 15 MG TABLET (FP) PO SCH (22:07)
[2021-12-23] MEDS ORDERED: DEXTROSE 5%-WATER 100 ML IVPB ONE ×3 (04:05→17:40)
[2021-12-23] MEDS ORDERED: CEFEPIME HCL 1 GM VIAL (RESTRICTED TO ID) ONE ×3 (04:05→17:40)
[2021-12-23] MEDS: CEFEPIME 1 GM in DEXTROSE 5%-WATER 1 GM/100 ML BAG IVPB SCH ×2 (04:08→09:54)
[2021-12-23] MEDS: POTASSIUM CHLORIDE 20 MEQ in AMINO ACIDS 4.25%/D5W 1,000 ML IV SCH ×2 (06:24→17:29)
[2021-12-23] MEDS: MIDODRINE HCL 5 MG TABLET PO SCH ×2 (06:25→14:35)
[2021-12-23] MEDS: BANATROL PLUS POWDER PACKET PO SCH ×2 (06:25→15:08)
[2021-12-23] MEDS: ACETAMINOPHEN 325 MG TABLET (FP) PO PRN (06:26)
[2021-12-23 07:30] LABS: BLOOD UREA NITROGEN 41.2 mg/dL (7-18); CALCIUM 8.3 mg/dL (8.5-10.1); MAGNESIUM 1.6 mg/dL (1.8-2.4)
[2021-12-23 07:33] LABS: ALBUMIN 2.2 g/dl (3.4-5.0); CREATININE 0.9 mg/dL (0.55-1.3)
[2021-12-23 07:35] LABS: BILIRUBIN,TOTAL 0.3 mg/dL (0.2-1); TOT PROT 5.6 g/dl (6.4-8.2)
[2021-12-23] MEDS: MAGNESIUM OXIDE 400 MG TABLET (FP) PO SCH (09:53)
[2021-12-23] MEDS: POTASSIUM CHLORIDE TABS 20 MEQ TABLET.ER (FP) PO SCH (09:53)
[2021-12-23] MEDS: predniSONE 10 MG TABLET (UD) PO SCH (09:53)
[2021-12-23] MEDS: ENOXAPARIN NA (PORCINE) 40 MG/0.4 ML DISP.SYRIN SQ SCH (09:53)
[2021-12-23] MEDS: PANTOPRAZOLE 40 MG TABLET PO SCH (09:54)
[2021-12-23] MEDS: AMINO ACIDS/PROTEIN HYDROLYS 30 ML LIQUID.PKT PO SCH ×2 (09:54→17:30)
[2021-12-23] MEDS: MULTIVIT-MINERALS ORAL LIQUID PO SCH (09:54)
[2021-12-23] MEDS: METOPROLOL TARTRATE 25 MG TABLET (FP) PO SCH (09:54)
[2021-12-23] MEDS: ALLOPURINOL 100 MG TABLET (FP) PO SCH (09:54)
[2021-12-23 14:22] VITALS: BP 89/62; PULSE 76; TEMP 98.6
== END 2021-12-23 18:48 | disposition hospice, inpatient (51) | DRG 177 ==
LOC: JER 10:24 → JERBED 19:28 → J4S 21:50 → J5S 12-02 16:25 → J4W 12-16 15:47
PROVIDERS: ADMIT Internal Medicine; ATTEND Nurse Practitioner Acute Care
PROC: XW033E5 Introduction of Remdesivir Anti-infective into Peripheral Vein, Percutaneous Approach, New Technology Group 5 (ICD-10-PCS; 2021-11-22)
PROC: 0W9930Z Drainage of Right Pleural Cavity with Drainage Device, Percutaneous Approach (ICD-10-PCS; principal; 2021-12-03)
DX: U07.1 COVID-19 (principal); J96.01 Acute respiratory failure with hypoxia; J12.82 Pneumonia due to coronavirus disease 2019; C34.90 Malignant neoplasm of unspecified part of unspecified bronchus or lung; E44.0 Moderate protein-calorie malnutrition; J98.11 Atelectasis; I24.8 Other forms of acute ischemic heart disease; I31.3 Pericardial effusion (noninflammatory); R04.2 Hemoptysis; J90 Pleural effusion, not elsewhere classified; I10 Essential (primary) hypertension; D64.9 Anemia, unspecified; D63.0 Anemia in neoplastic disease; E78.5 Hyperlipidemia, unspecified; D72.829 Elevated white blood cell count, unspecified; E83.42 Hypomagnesemia; Z68.22 Body mass index [BMI] 22.0-22.9, adult; I25.10 Atherosclerotic heart disease of native coronary artery without angina pectoris; I95.9 Hypotension, unspecified; F17.200 Nicotine dependence, unspecified, uncomplicated
CPT/HCPCS: 32557; 36415; 70450-TC; 70553-TC; 71045-TC-FY; 71250-TC; 71275-TC; 74177-TC; 76705-TC; 80053; 81003; 82042; 82140; 82150; 82272; 82550; 82553; 82607; 82728; 82803; 82945; 82962; 83540; 83550; 83605; 83615; 83735; 83986; 84100; 84157; 84439; 84443; 84478; 84484; 85025; 85045; 85379; 85610; 85730; 86140; 86704; 86709; 86803; 86850; 86900; 86901; 87040; 87045; 87046; 87070; 87075; 87086; 87102; 87116; 87205; 87206; 87210; 87324; 87340; 87449; 87517; 87899; 88108; 88305-TC; 93005; 93010; 93306-TC; 97116-GP; 97161-GP; 99285-25; A9579; C9399; C9803-CS; G0480; J1100; Q9967; U0003; U0005